=== PATIENT | female | born 1965 | race Caucasian/White ===

== ENCOUNTER 2016-05-09 05:41 | Day surgery (SDC) | payer OTHER ==
[2016-05-09] VITALS (9 sets, daily range): BP systolic 142–184; BP diastolic 72–88
[~2016-05-09] VITALS: Ht 167.6 cm; Wt 121.1 kg
[~2016-05-09 05:41] MED LIST: MEDR10TA PO
[2016-05-09] MEDS ORDERED: LR 1,000 ML IV SCH ×3 (06:00→11:15)
[2016-05-09 06:30] LABS: MEAN CORPUSCULAR HEMOGLOBIN 24.6 pg (27.0-33.0); MEAN CORPUSCULAR HGB CONC 31.5 g/dl (32.0-36.5); MEAN CORPUSCULAR VOLUME 78.3 fl (80.0-96.0); RED CELL DISTRIBUTION WIDTH 13.3 % (11.5-14.5); WHITE BLOOD COUNT 5.5 K/mm3 (4.0-10.0)
[2016-05-09] MEDS ORDERED: METHYLENE BLUE 1% 10 ML VIAL (Q9968) As Ordered ONE (07:18)
[2016-05-09] MEDS ORDERED: BUPIVACAINE HCL 0.25% 30 ML VIAL As Ordered ONE (07:18)
[2016-05-09] MEDS ORDERED: fentaNYL 250 MCG/5 ML INJECTION (J3010) As Ordered ONE (07:19)
[2016-05-09] MEDS ORDERED: ROCURONIUM BROMIDE 50 MG/5 ML VIAL As Ordered ONE ×2 (07:19→08:28)
[2016-05-09] MEDS ORDERED: LIDOCAINE 2% INJ 100 MG/5 ML SDV (FOR ANES.) As Ordered ONE (07:19)
[2016-05-09] MEDS ORDERED: PROPOFOL 200 MG/20 ML VIAL As Ordered ONE (07:19)
[2016-05-09] MEDS ORDERED: MIDAZOLAM INJ 2 MG/2 ML VIAL (J2250) As Ordered ONE (07:20)
[2016-05-09] MEDS ORDERED: ePHEDrine SULFATE 25 MG/5 ML(5MG/ML) SYRINGE As Ordered ONE (08:11)
[2016-05-09] MEDS ORDERED: BUPIVACAINE HCL 0.25% 30 ML VIAL XX ONE (08:46)
[2016-05-09] MEDS ORDERED: ONDANSETRON 4MG/2ML VIAL (J2405) As Ordered ONE (09:04)
[2016-05-09] MEDS ORDERED: METOCLOPRAMIDE INJ 10MG/2ML VIAL (J2765) As Ordered ONE (09:04)
[2016-05-09] MEDS ORDERED: dexameTHASONE 4 MG/ML 1ML VIAL (J1100) As Ordered ONE (09:04)
[2016-05-09] MEDS ORDERED: REMIFENTANIL 1MG 3ML VIAL As Ordered ONE (09:05)
[2016-05-09] MEDS ORDERED: HYDROmorphone HCL 2 MG/ML 1ML VIAL (J1170) As Ordered ONE (09:14)
[2016-05-09] MEDS ORDERED: GLYCOPYRROLATE INJ 0.2 MG/ML 2 ML VIAL As Ordered ONE (09:33)
[2016-05-09] MEDS ORDERED: NEOSTIGMINE 1MG/ML 5 ML SYRINGE (J2710) As Ordered ONE (09:33)
[2016-05-09] MEDS ORDERED: PHENYLephrine HCL 500 MCG/5 ML (100MCG/ML) SYRINGE (J2370) As Ordered ONE (10:17)
[2016-05-09] MEDS ORDERED: PROMETHAZINE INJ 25 MG/ML VIAL (J2550) IV PRN (11:15)
[2016-05-09] MEDS ORDERED: PERCOCET 5MG/325MG TAB PO PRN ×3 (11:15)
[2016-05-09] MEDS ORDERED: zolPIDEM TARTRATE 10MG TAB PO PRN (11:15)
[2016-05-09] MEDS ORDERED: fentaNYL 100 MCG/2 ML INJECTION (J3010) As Ordered ONE (11:25)
[2016-05-09] MEDS: fentaNYL 100 MCG/2 ML INJECTION (J3010) IV PRN ×2 (11:26→11:31)
[2016-05-09] MEDS ORDERED: MORPHINE 4 MG/ML 1ML SYRINGE IV PRN (13:00)
--- NOTE | 2016-05-09 14:14 | RO ---
DATE OF PROCEDURE: 05/09/2016 PREPROCEDURE DIAGNOSES: 1. Abnormal uterine bleeding. 2. Fibroid uterus. POSTPROCEDURE DIAGNOSES: 1. Abnormal uterine bleeding. 2. Fibroid uterus. PROCEDURE PERFORMED: 1. Robotic-assisted laparoscopic hysterectomy. 2. Bilateral salpingo-oophorectomy. 3. Cystoscopy. SURGEON: Zuri Liang MD GENERAL FREIGHT AGENT: Mariza Wells NP ANESTHESIA: General endotracheal anesthesia. INTRAVENOUS FLUIDS: 2 liters of lactated Ringer solution. SPECIMENS: Cervix, uterus, bilateral fallopian tubes and ovaries. PREOPERATIVE ANTIBIOTICS: 2 grams of Ancef. OPERATIVE FINDINGS: Patient with approximately 10 week sized uterus with several fibroids. Right follicular cyst. CYSTOSCOPIC FINDINGS: Good urethral efflux bilaterally. No evidence of trauma to the bladder or foreign body. INDICATION FOR OPERATION: The patient is a 50-year-old with symptomatic fibroid uterus and desires to proceed with definitive treatment options with hysterectomy. She also desires prophylactic bilateral salpingo-oophorectomy. DESCRIPTION OF OPERATION: After informed consent was obtained and written content was reviewed, the patient was then taken to the operating room where general endotracheal anesthesia was obtained. She was then placed in lithotomy position and was prepped and draped in a normal sterile fashion. A time-out in the operating room was then performed identifying the patient, the procedure to be performed, as well as drug allergies. A speculum was then placed in the vagina revealing the cervix. The anterior and posterior aspects of the cervix were stitched with #0 Vicryl. The uterus was then sequentially dilated with Hanks dilators. A large VCare uterine manipulator was then advanced through the cervical os for means to manipulate the uterus. The uterine balloon was insufflated with 10 mL of air. The cervical cap was placed over cervix and the vaginal sleeve was advanced down to the vagina. Instruments were removed from the vagina. A David catheter was placed and set to gravity. Gloves were changed and attention was turned to the patient's abdomen where a Veress needle was placed through the umbilicus. A pneumoperitoneum was then obtained with CO2 gas. The supraumbilical area was then infused with 0.25% Marcaine. An incision was made in this area and a 12 mm trocar and sleeve was advanced through this incision. The laparoscope was then placed revealing intra-abdominal placement. Two lateral ports, left and to the right of the umbilicus were placed. Each of these ports were infused with 0.25% Marcaine. An 8 mm trocar and sleeve was advanced through each one of these incisions under direct visualization. A fourth trocar was placed in the left side of the patient's abdomen. This area was infused with 0.25% Marcaine. An incision was made in this area. Another 8 mm trocar and sleeve was advanced through this incision under direct visualization. Next, the da Rahul was then advanced to the patient's table and it was docked utilizing a camera arm and two operative arms. Utilizing da Rahul equipment, bipolar cautery the utero-ovarian ligaments were then cauterized and ligated with good hemostasis noted bilaterally. The round ligaments on both sides were then cauterized and ligated with good hemostasis noted. The anterior lip of the broad ligament was then dissected along the bladder, creating a bladder flap. The remainder of the broad ligaments and cardinal ligaments were then cauterized and ligated with good hemostasis noted. The uterine arteries were then skeletonized bilaterally and were cauterized and ligated with good hemostasis noted. The anterior and posterior colpotomies were then made and the uterus was removed vaginally. The surgical sites were then inspected and noted to be hemostatic. Next, bilateral salpingo-oophorectomy was then performed. The right adnexa was placed in traction. The infundibulopelvic ligament was then cauterized and ligated with good hemostasis noted. The specimen was then brought out through the vaginal incision in a single fashion. The left adnexa was placed in traction. The left infundibulopelvic ligament was then cauterized and ligated with good hemostasis noted. The specimen was removed and brought out through the vaginal incision. Next, the vaginal cuff was then closed laparoscopically using #2-0 V-Loc system in a running fashion. The surgical sites were inspected and noted to be hemostatic. The abdomen was then irrigated and suctioned. Alejandro was applied over the surgical sites. Next, a cystoscopy was performed. The David catheter was removed. The cystoscope was advanced through the urethra. Cystoscopy was performed revealing normal bladder mucosa, bilateral jets. The bladder was then drained. The gloves were changed, and attention was turned to the patient's abdomen where all skin incisions were closed with #4-0 Monocryl and dressed with Dermabond. The patient was then taken out of lithotomy position, was awakened from general anesthesia and taken to recovery in stable condition. Counts were correct.
== END 2016-05-09 20:30 | disposition home or self-care (01) ==
LOC: M SDC 05:41 → M PED 12:07 → M SDC 20:30
PROVIDERS: ATTEND Obstetrics & Gynecology
DX: N93.9 Abnormal uterine and vaginal bleeding, unspecified (principal); D25.1 Intramural leiomyoma of uterus; R06.83 Snoring; E66.01 Morbid (severe) obesity due to excess calories; D64.9 Anemia, unspecified; Z88.8 Allergy status to other drugs, medicaments and biological substances; Z79.899 Other long term (current) drug therapy

== ENCOUNTER 2017-04-28 21:33 | Emergency (ER) | payer OTHER ==
[2017-04-28] MEDS ORDERED: NORCO, ANEXSIA 5/325MG TABLET (HYDROcodone/ACETAMINOPHEN) PO ×2 (23:15)
[2017-04-29 00:32] LABS: BASO # 0.1 10^3/uL (0.0-0.2); BASO % 0.5 % (0.0-1.0); EOS # 0.2 10^3/uL (0.0-0.50); EOS % 2.2 % (0.0-3.0); HEMATOCRIT 37.2 % (36.0-47.0); HEMOGLOBIN 11.8 g/dl (12.0-16.0); IMMATURE GRANULOCYTE % 0.8 % (0-3.0); LYMPH # 1.4 10^3/uL (1.5-4.5); LYMPH % 14.2 % (24.0-44.0); MEAN CORPUSCULAR HEMOGLOBIN 27.9 pg (27.0-33.0); MEAN CORPUSCULAR HGB CONC 31.7 g/dl (32.0-36.5); MEAN CORPUSCULAR VOLUME 87.9 fl (80.0-96.0); MONO # 0.7 10^3/uL (0.0-0.8); MONO % 7.4 % (0.0-5.0); NEUTROPHILS # 7.3 10^3/uL (1.8-7.7); NEUTROPHILS % 74.9 % (36.0-66.0); PLATELET COUNT, AUTOMATED 349 10^3/uL (150-450); RED BLOOD COUNT 4.23 10^6/uL (4.00-5.40); RED CELL DISTRIBUTION WIDTH 13.2 % (11.5-14.5); WHITE BLOOD COUNT 9.8 10^3/uL (4.0-10.0)
[2017-04-29 00:50] LABS: ANION GAP 8 MEQ/L (8-16); BLOOD UREA NITROGEN 26 MG/DL (7-18); CALCIUM LEVEL 9.4 MG/DL (8.5-10.1); CARBON DIOXIDE LEVEL 31 MEQ/L (21-32); CHLORIDE LEVEL 102 MEQ/L (98-107); CREATININE FOR GFR 1.03 MG/DL (0.55-1.30); GLOMERULAR FILTRATION RATE > 60.0 (>58); GLUCOSE, FASTING 120 MG/DL (70-100); POTASSIUM SERUM 4.1 MEQ/L (3.5-5.1); SODIUM LEVEL 141 MEQ/L (136-145)
[2017-04-29] MEDS: NS 1,000 ML IV ×2 (01:00)
== END 2017-04-29 02:30 | disposition short-term general hospital (02) ==
LOC: M ED 04-29 02:30
DX: D49.511 Neoplasm of unspecified behavior of right kidney (principal); M79.89 Other specified soft tissue disorders; G43.909 Migraine, unspecified, not intractable, without status migrainosus; D64.9 Anemia, unspecified; Z88.8 Allergy status to other drugs, medicaments and biological substances
CPT/HCPCS: 71046

== ENCOUNTER → 2017-07-30 | Outpatient (CLI) | payer OTHER ==
[2017-07-30 15:07] LABS: INR 1.71; PROTHROMBIN TIME 20.6 SECONDS (12.4-14.5)
== END ==
LOC: M LAB 14:39
DX: Z51.81 Encounter for therapeutic drug level monitoring (principal); Z79.01 Long term (current) use of anticoagulants; I82.91 Chronic embolism and thrombosis of unspecified vein
CPT/HCPCS: 85610

== ENCOUNTER → 2017-08-17 | Outpatient (CLI) | payer OTHER ==
[2017-08-17 10:29] LABS: INR 1.02; PROTHROMBIN TIME 13.5 SECONDS (12.4-14.5)
[2017-08-17 10:30] LABS: PARTIAL THROMBOPLASTIN TIME 26.9 SECONDS (26.8-37.9)
== END ==
LOC: M LAB 09:38
DX: C64.1 Malignant neoplasm of right kidney, except renal pelvis (principal)
CPT/HCPCS: 85610

== ENCOUNTER → 2017-08-27 | Outpatient (CLI) | payer OTHER ==
[2017-08-27 13:51] LABS: INR 1.28; PROTHROMBIN TIME 16.3 SECONDS (12.4-14.5)
== END ==
LOC: M LAB 13:13
DX: I82.91 Chronic embolism and thrombosis of unspecified vein (principal); Z79.01 Long term (current) use of anticoagulants
CPT/HCPCS: 85610

== ENCOUNTER → 2017-09-03 | Outpatient (CLI) | payer OTHER ==
[2017-09-03 10:58] LABS: INR 1.75; PROTHROMBIN TIME 20.8 SECONDS (12.1-14.4)
== END ==
LOC: M LAB 10:12
DX: Z51.81 Encounter for therapeutic drug level monitoring (principal); Z79.01 Long term (current) use of anticoagulants
CPT/HCPCS: 85610

== ENCOUNTER → 2017-09-10 | Outpatient (CLI) | payer OTHER ==
[2017-09-10 12:06] LABS: INR 1.78
== END ==
LOC: M LAB 11:26
DX: I82.91 Chronic embolism and thrombosis of unspecified vein (principal); Z79.01 Long term (current) use of anticoagulants
CPT/HCPCS: 85610

== ENCOUNTER → 2017-09-21 | Outpatient (CLI) | payer OTHER ==
[2017-09-21 13:01] LABS: INR 2.16; PROTHROMBIN TIME 24.5 SECONDS (12.1-14.4)
== END ==
LOC: M LAB 12:30
DX: I82.91 Chronic embolism and thrombosis of unspecified vein (principal); Z79.01 Long term (current) use of anticoagulants
CPT/HCPCS: 85610

== ENCOUNTER 2017-09-25 15:40 | Emergency (ER) | payer OTHER ==
[2017-09-25 17:11] LABS: BASO # 0.1 10^3/uL (0.0-0.2); BASO % 0.7 % (0.0-1.0); EOS # 0.2 10^3/uL (0.0-0.50); EOS % 2.7 % (0.0-3.0); HEMATOCRIT 37.5 % (36.0-47.0); HEMOGLOBIN 11.7 g/dl (12.0-15.5); IMMATURE GRANULOCYTE % 0.4 % (0-3.0); LYMPH # 1.5 10^3/uL (1.5-4.5); LYMPH % 19.8 % (24.0-44.0); MEAN CORPUSCULAR HGB CONC 31.2 g/dl (32.0-36.5); MEAN CORPUSCULAR VOLUME 86.4 fl (80.0-96.0); MONO # 0.5 10^3/uL (0.0-0.8); MONO % 6.8 % (0.0-5.0); NEUTROPHILS # 5.3 10^3/uL (1.8-7.7); NEUTROPHILS % 69.6 % (36.0-66.0); PLATELET COUNT, AUTOMATED 272 10^3/uL (150-450); RED BLOOD COUNT 4.34 10^6/uL (4.00-5.40); RED CELL DISTRIBUTION WIDTH 14.6 % (11.5-14.5); WHITE BLOOD COUNT 7.7 10^3/uL (4.0-10.0)
[2017-09-25 17:16] LABS: ALBUMIN 3.9 GM/DL (3.2-5.2); ALBUMIN/GLOBULIN RATIO 1.08 (1.00-1.93); ALKALINE PHOSPHATASE 72 U/L (45-117); ALT/SGPT 46 U/L (12-78); ANION GAP 7 MEQ/L (8-16); AST/SGOT 26 U/L (7-37); BILIRUBIN,TOTAL 0.2 MG/DL (0.2-1.0); BLOOD UREA NITROGEN 24 MG/DL (7-18); CARBON DIOXIDE LEVEL 28 MEQ/L (21-32); CHLORIDE LEVEL 107 MEQ/L (98-107); GLUCOSE, FASTING 89 MG/DL (70-100); POTASSIUM SERUM 4.3 MEQ/L (3.5-5.1); SODIUM LEVEL 142 MEQ/L (136-145); TOTAL PROTEIN 7.5 GM/DL (6.4-8.2)
[2017-09-25 18:01] LABS: INR 2.17; PROTHROMBIN TIME 24.6 SECONDS (12.1-14.4)
== END 2017-09-25 19:38 | disposition home or self-care (01) ==
LOC: M ED 15:40
DX: I82.431 Acute embolism and thrombosis of right popliteal vein (principal); C64.9 Malignant neoplasm of unspecified kidney, except renal pelvis; D64.9 Anemia, unspecified; G43.909 Migraine, unspecified, not intractable, without status migrainosus; Z79.899 Other long term (current) drug therapy; Z79.01 Long term (current) use of anticoagulants; Z90.5 Acquired absence of kidney
CPT/HCPCS: 71046

== ENCOUNTER → 2017-09-28 | Outpatient (CLI) | payer OTHER ==
[2017-09-28 11:28] LABS: INR 2.09; PROTHROMBIN TIME 23.9 SECONDS (12.1-14.4)
== END ==
LOC: M LAB 10:41
DX: I82.91 Chronic embolism and thrombosis of unspecified vein (principal)
CPT/HCPCS: 85610

== ENCOUNTER → 2017-09-30 | Outpatient (CLI) | payer OTHER | LOC: M RAD 12:20 | DX: C64.1 Malignant neoplasm of right kidney, except renal pelvis (principal) | CPT/HCPCS: 71250 ==

== ENCOUNTER 2017-11-27 20:19 | Emergency (ER) | payer OTHER ==
[2017-11-27] MEDS: NORCO 5/325MG TABLET (BULK FOR ED) PO (22:57)
== END 2017-11-27 23:17 | disposition home or self-care (01) ==
LOC: M ED 20:19
DX: S00.03XA Contusion of scalp, initial encounter (principal); S20.211A Contusion of right front wall of thorax, initial encounter; W10.9XXA Fall (on) (from) unspecified stairs and steps, initial encounter; Y92.099 Unspecified place in other non-institutional residence as the place of occurrence of the external cause; Y93.89 Activity, other specified; Y99.9 Unspecified external cause status; Z85.528 Personal history of other malignant neoplasm of kidney; Z86.718 Personal history of other venous thrombosis and embolism; Z79.01 Long term (current) use of anticoagulants; Z79.899 Other long term (current) drug therapy; Z88.6 Allergy status to analgesic agent
CPT/HCPCS: 70450

== ENCOUNTER 2018-03-01 11:45 | Emergency (ER) | payer OTHER ==
[~2018-03-01] VITALS: Ht 170.2 cm; Wt 122.7 kg
[~2018-03-01 11:45] MED LIST changes: +LEVO25TA5 PO; +LEXA1TAB PO; +LOVE0.01 SC; +TORS5TAB2 PO; +WARF-21 PO; +WARF-22 PO
[2018-03-01] MEDS ORDERED: ELIQ5TAB PO (12:03)
[2018-03-01] MEDS ORDERED: ACETAMINOPHEN 325 MG TAB PO ONE (12:45)
[2018-03-01 13:28] VITALS: BP 133/76
--- NOTE | 2018-03-05 11:52 | REP ---
Clinical: Trauma. Fall. Technique: Neutral and frog lateral views of the left hip. Findings: No acute fracture dislocation. Skeletal structures, joint spaces, and surrounding soft tissues are normal. Impression: No acute fracture or dislocation. Electronically Signed by Julio Soliman MD 03/01/2018 12:26 P
--- NOTE | 2018-03-05 11:52 | REP ---
Clinical: Trauma. Technique: AP, lateral, bilateral oblique views of the left ankle. Findings: Oblique nondisplaced fracture of the distal fibular metaphysis with overlying soft tissue swelling. Impression: Oblique nondisplaced fracture of the distal fibular metaphysis. Electronically Signed by Julio Soliman MD 03/01/2018 12:26 P
== END 2018-03-01 13:31 | disposition home or self-care (01) ==
LOC: M ED 11:45
DX: S82.435A Nondisplaced oblique fracture of shaft of left fibula, initial encounter for closed fracture (principal); W19.XXXA Unspecified fall, initial encounter; Y92.410 Unspecified street and highway as the place of occurrence of the external cause; Y93.89 Activity, other specified; Y99.9 Unspecified external cause status; Z85.528 Personal history of other malignant neoplasm of kidney; Z79.899 Other long term (current) drug therapy; Z88.6 Allergy status to analgesic agent

== ENCOUNTER 2019-01-12 12:20 | Emergency (ER) | payer OTHER ==
[~2019-01-12] VITALS: Ht 167.6 cm; Wt 136.6 kg
[~2019-01-12 12:20] MED LIST changes: +ELIQ5TAB PO
[2019-01-12] MEDS ORDERED: VOTRIENT (12:26)
--- NOTE | 2019-01-12 13:02 | REP ---
CT brain: 01/12/2019. Indication: Head trauma. Comparison: 11/27/2018. Technique: Unenhanced axial CT images of the brain were obtained from skull base to vertex. Findings: There is no acute intracranial hemorrhage, acute cortical infarction, mass effect, hydrocephalus or acute calvarial fracture. Impression: No acute intracranial process. Electronically Signed by Lev Coronel DO 01/12/2019 12:53 P
[2019-01-12] MEDS ORDERED: HYDR12CA PO (13:11)
--- NOTE | 2019-01-12 13:16 | REP ---
CT cervical spine: 01/12/2019. Indication: Cervical spine trauma. Comparison: None. Technique: Unenhanced axial CT images of the cervical spine were obtained without IV IV contrast with coronal and sagittal reconstructions provided. Findings: There is mild reversal of the cervical lordosis. There is no acute fracture, subluxation or dislocation. No severe narrowing of the spinal canal is detected. There is no significant hemorrhage detected within the spinal canal. No erosive osseous lesions are detected. Impression: No acute post traumatic osseous injuries of the cervical spine detected. Electronically Signed by Lev Coronel DO 01/12/2019 01:08 P
[2019-01-12 14:19] VITALS: BP 128/91
== END 2019-01-12 14:20 | disposition home or self-care (01) ==
LOC: M ED 12:20
DX: S00.03XA Contusion of scalp, initial encounter (principal); T14.8XXA Other injury of unspecified body region, initial encounter; W01.198A Fall on same level from slipping, tripping and stumbling with subsequent striking against other object, initial encounter; Y92.481 Parking lot as the place of occurrence of the external cause; G57.92 Unspecified mononeuropathy of left lower limb; E03.9 Hypothyroidism, unspecified; F41.9 Anxiety disorder, unspecified; Z86.718 Personal history of other venous thrombosis and embolism; Z86.711 Personal history of pulmonary embolism; Z88.6 Allergy status to analgesic agent; C64.9 Malignant neoplasm of unspecified kidney, except renal pelvis; Z90.5 Acquired absence of kidney; Z79.899 Other long term (current) drug therapy; Z79.01 Long term (current) use of anticoagulants

== ENCOUNTER → 2019-07-04 | Outpatient (CLI) | payer OTHER ==
[~2019-07-04] MED LIST changes: +HYDR12CA PO; +VOTRIENT
[2019-07-04 12:10] LABS: BASO % 0.4 % (0.0-1.0); EOS # 0.1 10^3/uL (0.0-0.5); EOS % 1.9 % (0.0-3.0); HEMATOCRIT 44.8 % (36.0-47.0); HEMOGLOBIN 14.3 g/dl (12.0-15.5); LYMPH # 0.9 10^3/uL (1.5-5.0); LYMPH % 17.3 % (24.0-44.0); MEAN CORPUSCULAR HEMOGLOBIN 31.4 pg (27.0-33.0); MEAN CORPUSCULAR HGB CONC 31.9 g/dl (32.0-36.5); MEAN CORPUSCULAR VOLUME 98.2 fl (80.0-96.0); MONO # 0.3 10^3/uL (0.0-0.8); MONO % 6.1 % (0.0-5.0); NEUTROPHILS # 3.9 10^3/uL (1.5-8.5); NEUTROPHILS % 73.9 % (36.0-66.0); PLATELET COUNT, AUTOMATED 261 10^3/uL (150-450); RED BLOOD COUNT 4.56 10^6/uL (4.00-5.40); WHITE BLOOD COUNT 5.3 10^3/uL (4.0-10.0)
[2019-07-04 12:34] LABS: ALBUMIN 3.8 GM/DL (3.2-5.2); BILIRUBIN,TOTAL 0.3 MG/DL (0.2-1.0); CALCIUM LEVEL 9.8 MG/DL (8.5-10.1); CREATININE FOR GFR 1.08 MG/DL (0.55-1.30); GLOMERULAR FILTRATION RATE 56.9 (>51); TOTAL PROTEIN 7.5 GM/DL (6.4-8.2)
== END ==
LOC: M LAB 11:34
PROVIDERS: ATTEND Physician Assistant Medical
DX: C64.1 Malignant neoplasm of right kidney, except renal pelvis (principal)

== ENCOUNTER → 2019-09-08 | Outpatient (CLI) | payer OTHER ==
--- NOTE | 2019-09-21 15:54 | REP ---
THYROID ULTRASOUND: Real-time sonographic evaluation of thyroid performed. For reasons unknown to me, this study is submitted for interpretation 09/21/2019. Right lobe is mildly larger than left. Right lobe measures 4.9 x 1.9 x 1.7 cm and left lobe 3.8 x 1.8 x 1.4 cm. There are bilateral solid nodules present. The largest nodule is in the upper pole on the right and demonstrates heterogeneous echotexture with hypoechoic center and hypoechoic rim. It measures 1.4 x 1.2 x 1.1 cm. Three smaller nodules are seen in the right lobe, one in the upper pole 5 mm in diameter, another in the mid aspect 4 mm in diameter, and another in the lower pole 6 mm in diameter. There are two solid nodules on the left, in the superior aspect, 8 mm in diameter, and in the lower aspect 4 mm in diameter. IMPRESSION: Bilateral solid nodules of the thyroid with mild enlargement of the right lobe. The largest nodule was in the right upper lobe and measures 1.4 cm in maximum diameter. According to TI-RADS criteria, fine-needle aspiration is not indicated. In addition, no followup is indicated for nodules having this appearance that are less than 1.5 cm in diameter. Electronically Signed by Shahram Michelle MD 09/21/2019 11:55 P
== END ==
LOC: M LRY 08:58
DX: E04.2 Nontoxic multinodular goiter (principal)

== ENCOUNTER → 2019-10-02 | Outpatient (CLI) | payer OTHER ==
[2019-11-16 13:56] LABS: PERCENT SATURATION 26.6 % (13.2-45.0)
== END ==
LOC: M LAB 10:50
PROVIDERS: ATTEND Internal Medicine Hematology & Oncology
DX: R53.83 Other fatigue (principal)

== ENCOUNTER → 2019-10-23 | Outpatient (CLI) | payer MEDICARE, OTHER ==
[2019-12-15 16:32] LABS: PERCENT SATURATION 24.1 % (13.2-45.0)
== END ==
LOC: M LAB 08:50
PROVIDERS: ATTEND Internal Medicine Hematology & Oncology
DX: R53.83 Other fatigue (principal)

== ENCOUNTER → 2020-01-24 | Outpatient (CLI) | payer MEDICARE, OTHER ==
[2020-01-24 11:13] LABS: BASO % 0.4 % (0.0-1.0); EOS # 0.1 10^3/uL (0.0-0.5); EOS % 1.7 % (0.0-3.0); HEMATOCRIT 41.7 % (36.0-47.0); HEMOGLOBIN 12.8 g/dl (12.0-15.5); LYMPH # 0.8 10^3/uL (1.5-5.0); LYMPH % 16.1 % (24.0-44.0); MEAN CORPUSCULAR HEMOGLOBIN 31.3 pg (27.0-33.0); MEAN CORPUSCULAR HGB CONC 30.7 g/dl (32.0-36.5); MONO # 0.3 10^3/uL (0.0-0.8); MONO % 5.7 % (0.0-5.0); NEUTROPHILS # 3.6 10^3/uL (1.5-8.5); NEUTROPHILS % 75.9 % (36.0-66.0); PLATELET COUNT, AUTOMATED 233 10^3/uL (150-450); RED BLOOD COUNT 4.09 10^6/uL (4.00-5.40); WHITE BLOOD COUNT 4.8 10^3/uL (4.0-10.0)
[2020-01-24 12:10] LABS: ALBUMIN 3.9 GM/DL (3.2-5.2); ALT/SGPT 84 U/L (12-78); BILIRUBIN,TOTAL 0.5 MG/DL (0.2-1.0); BLOOD UREA NITROGEN 17 MG/DL (7-18); CALCIUM LEVEL 9.2 MG/DL (8.5-10.1); CARBON DIOXIDE LEVEL 32 MEQ/L (21-32); CHLORIDE LEVEL 101 MEQ/L (98-107); CREATININE FOR GFR 0.89 MG/DL (0.55-1.30); GLOMERULAR FILTRATION RATE > 60.0 (>51); GLUCOSE, FASTING 116 MG/DL (70-100); IRON (FE) 87 UG/DL (50-170); PERCENT SATURATION 22.1 % (13.2-45.0); POTASSIUM SERUM 4.4 MEQ/L (3.5-5.1); SODIUM LEVEL 137 MEQ/L (136-145); TOTAL IRON BINDING CAPACITY 393 UG/DL (250-450); TOTAL PROTEIN 7.8 GM/DL (6.4-8.2)
== END ==
LOC: M LAB 09:35
PROVIDERS: ATTEND Internal Medicine Hematology & Oncology
DX: C64.9 Malignant neoplasm of unspecified kidney, except renal pelvis (principal); E61.1 Iron deficiency

== ENCOUNTER → 2020-07-26 | Outpatient (CLI) | payer MEDICARE, OTHER | LOC: M CARPUL 09:50 | PROVIDERS: ATTEND Internal Medicine Pulmonary Disease | DX: R06.02 Shortness of breath (principal) ==

== ENCOUNTER → 2020-08-08 | Outpatient (CLI) | payer MEDICARE, OTHER ==
[~2020-08-08] MED LIST changes: +HYDR-3490 PO; +VOTR200T2 PO
== END ==
LOC: M LABSMTC 11:38
PROVIDERS: ATTEND Anesthesiology
DX: Z01.818 Encounter for other preprocedural examination (principal); Z11.52 Encounter for screening for COVID-19

== ENCOUNTER → 2020-08-09 | Outpatient (CLI) | payer MEDICARE, OTHER ==
[~2020-08-09] MED LIST changes: +METHACHOLINE KIT (J7674) INH ONE
--- NOTE | 2020-08-09 13:26 | PFTRPT ---
Site: [facility], [address] [place], [address] ID: [id number] Name: ADALBERTO PATEL Visit Date: 08/09/2020 Second ID: [id number] Referring Doctor: Fernando Alston MD Reviewing Doctor: Fernando Alston MD Lead Burner Apprentice: Sukhdev BURNS, SARIAH Age: 54 : 1965 Sex: Female Race: Height: 66.00 Inches Weight: 293.00 Lbs BSA: 2.35 Order IDs: [id number] Requested Test(s): <RESP-PFT.METH CHAL> Diagnosis: R06.02 of albuterol for post bronchodilator. Review Status: Not Reviewed Pre-Bronch Post-Bronch Pred Actual %Pred Actual %Chng SPIROMETRY FVC (L) 3.73 2.84 76 2.67 -6 FEV1 (L) 2.93 2.42 82 2.28 -5 FEV1/FVC (%) 80 85 106 86 FEF 25% (L/sec) 5.36 5.93 110 4.93 -16 FEF 50% (L/sec) 3.84 4.15 108 3.87 -6 FEF 75% (L/sec) 1.37 1.15 83 0.80 -30 FEF 25-75% (L/sec) 2.76 2.94 106 2.45 -16 FEF Max (L/sec) 6.94 5.93 85 4.94 -16 FIVC (L) 2.93 2.58 -12 FIF 50% (L/sec) 4.24 4.90 115 4.23 -13 FIF Max (L/sec) 4.91 4.58 -6 Expiratory Time (sec) 6.73 7.37 9 Back Extrap Vol (L) 0.12 0.11 -2 Time To FEFmax (sec) 0.117 0.157 34
== END ==
LOC: M CARPUL 12:39
PROVIDERS: ATTEND Internal Medicine Pulmonary Disease
DX: R06.02 Shortness of breath (principal)
CPT/HCPCS: 94070; 95070; J7674

== ENCOUNTER 2020-08-13 12:20 | Day surgery (SDC) | payer MEDICARE, OTHER ==
[~2020-08-13] VITALS: Ht 167.6 cm; Wt 129.3 kg
[~2020-08-13 12:20] MED LIST changes: -METHACHOLINE KIT (J7674) INH ONE; +NS 1,000 ML IV ONE
[2020-08-13] MEDS ORDERED: fentaNYL 100 MCG/2 ML INJECTION (J3010) As Ordered ONE (14:18)
[2020-08-13] MEDS ORDERED: LIDOCAINE 2% 100MG/5ML SDV (FOR ANES.) As Ordered ONE (14:18)
[2020-08-13] MEDS ORDERED: propofoL 200 MG/20 ML VIAL As Ordered ONE ×2 (14:18→15:19)
--- NOTE | 2020-08-13 15:28 | ROOR ---
Patient Name: Eve Simon Procedure Date: 08/13/2020 2:49 PM Date of : 1965 Age: 54 Room: [facility] Gender: Female Note Status: Finalized Procedure: Upper GI endoscopy Indications: Iron deficiency anemia, Occult blood in stool Providers: Oni Madrid MD Referring MD: EFFIE COE DO Requesting Provider: Medicines: Monitored Anesthesia Care Complications: No immediate complications. Procedure: Pre-Anesthesia Assessment: - Prior to the procedure, a History and Physical was performed, and patient medications and allergies were reviewed. The patient is competent. The risks and benefits of the procedure and the sedation options and risks were discussed with the patient. All questions were answered and informed consent was obtained. Patient identification and proposed procedure were verified by the physician, the nurse and the anesthesiologist in the procedure room. Mental Status Examination: alert and oriented. Airway Examination: normal oropharyngeal airway and neck mobility. Respiratory Examination: clear to auscultation. CV Examination: normal. Prophylactic Antibiotics: The patient does not require prophylactic antibiotics. Prior Anticoagulants: The patient has taken no previous anticoagulant or antiplatelet agents. ASA Grade Assessment: III - A patient with severe systemic disease. After reviewing the risks and benefits, the patient was deemed in satisfactory condition to undergo the procedure. The anesthesia plan was to use monitored anesthesia care (MAC). Immediately prior to administration of medications, the patient was re-assessed for adequacy to receive sedatives. The heart rate, respiratory rate, oxygen saturations, blood pressure, adequacy of pulmonary ventilation, and response to care were monitored throughout the procedure. The physical status of the patient was re-assessed after the procedure. The Endoscope was introduced through the mouth, and advanced to the second part of duodenum. The upper GI endoscopy was accomplished without difficulty. The patient tolerated the procedure well. Findings: The examined esophagus was normal. Scattered and patchy moderate inflammation characterized by erythema, friability and granularity was found in the gastric antrum. Biopsies were taken with a cold forceps for Helicobacter pylori testing. Verification of patient identification for the specimen was done by the physician and nurse using the patient's name, date and medical record number. Estimated blood loss was minimal. Decreased folds were found in the duodenal bulb, decreased folds were found in the second portion of the duodenum, scalloped mucosa was found in the duodenal bulb and thickened folds were found in the duodenal bulb. Biopsies for histology were taken with a cold forceps for evaluation of celiac disease. Multiple diminutive angioectasias without bleeding were found in the entire duodenum. Impression: - Normal esophagus. - Gastritis. Biopsied. - Duodenal mucosal changes seen, suspicious for celiac disease. Biopsied. - Multiple non-bleeding angioectasias in the duodenum. Recommendation: - Patient has a contact number available for emergencies. The signs and symptoms of potential delayed complications were discussed with the patient. Return to normal activities tomorrow. Written discharge instructions were provided to the patient. - High fiber diet. - Continue present medications. - Use Protonix (pantoprazole) 40 mg PO twice daily - to be taken in morning (1/2 hour before breakfast) and at bedtime ( atleast 3 hours after last meal) for 3 months. - Await pathology results. - Check CBC, serum iron , transferrin and ferritin levels (fasting labs) in 3 months. - Repeat upper endoscopy in 3 months to evaluate the response to therapy. - Return to GI clinic in 3 months. - Return to primary care physician. Procedure Code(s): --- Professional --- 67418, Esophagogastroduodenoscopy, flexible, transoral; with biopsy, single or multiple Diagnosis Code(s): --- Professional --- K29.70, Gastritis, unspecified, without bleeding K31.89, Other diseases of stomach and duodenum K31.819, Angiodysplasia of stomach and duodenum without bleeding D50.9, Iron deficiency anemia, unspecified R19.5, Other fecal abnormalities CPT copyright 2019 [employer]. All rights reserved. The codes documented in this report are preliminary and upon binding end stitcher review may be revised to meet current compliance requirements. Oni Madrid MD Oni Madrid MD 08/13/2020 3:27:41 PM Electronically signed by Oni Madrid MD Number of Addenda: 0 Note Initiated On: 08/13/2020 2:49 PM Estimated Blood Loss: Estimated blood loss was minimal.
--- NOTE | 2020-08-13 15:37 | ROOR ---
Patient Name: Eve Simon Procedure Date: 08/13/2020 2:50 PM Date of : 1965 Age: 54 Room: [facility] Gender: Female Note Status: Finalized Procedure: Colonoscopy Indications: Gastrointestinal occult blood loss, Iron deficiency anemia Providers: Oni Madrid MD Referring MD: EFFIE COE DO Requesting Provider: Medicines: Monitored Anesthesia Care Complications: No immediate complications. Procedure: Pre-Anesthesia Assessment: - Prior to the procedure, a History and Physical was performed, and patient medications and allergies were reviewed. The patient is competent. The risks and benefits of the procedure and the sedation options and risks were discussed with the patient. All questions were answered and informed consent was obtained. Patient identification and proposed procedure were verified by the physician, the nurse and the anesthesiologist in the procedure room. Mental Status Examination: alert and oriented. Airway Examination: normal oropharyngeal airway and neck mobility. Respiratory Examination: clear to auscultation. CV Examination: normal. Prophylactic Antibiotics: The patient does not require prophylactic antibiotics. Prior Anticoagulants: The patient has taken no previous anticoagulant or antiplatelet agents. ASA Grade Assessment: III - A patient with severe systemic disease. After reviewing the risks and benefits, the patient was deemed in satisfactory condition to undergo the procedure. The anesthesia plan was to use monitored anesthesia care (MAC). Immediately prior to administration of medications, the patient was re-assessed for adequacy to receive sedatives. The heart rate, respiratory rate, oxygen saturations, blood pressure, adequacy of pulmonary ventilation, and response to care were monitored throughout the procedure. The physical status of the patient was re-assessed after the procedure. The Colonoscope was introduced through the anus and advanced to the terminal ileum, with identification of the appendiceal orifice and IC valve. The colonoscopy was performed without difficulty. The patient tolerated the procedure well. The quality of the bowel preparation was good. The terminal ileum, ileocecal valve, appendiceal orifice, and rectum were photographed. Scope insertion time was 2 minutes. Scope withdrawal time was 8 minutes. The total duration of the procedure was 12 minutes. Findings: The perianal and digital rectal examinations were normal. The terminal ileum contained multiple small angioectasias without bleeding. A 3 mm polyp was found in the cecum. The polyp was sessile. The polyp was removed with a cold biopsy forceps. Resection and retrieval were complete. Verification of patient identification for the specimen was done by the physician and nurse using the patient's name, date and medical record number. Estimated blood loss was minimal. Non-bleeding external and internal hemorrhoids were found during retroflexion. The hemorrhoids were medium-sized. Impression: - Multiple non-bleeding angioectasias in the ileum. - One 3 mm polyp in the cecum, removed with a cold biopsy forceps. Resected and retrieved. - Non-bleeding external and internal hemorrhoids. Recommendation: - Patient has a contact number available for emergencies. The signs and symptoms of potential delayed complications were discussed with the patient. Return to normal activities tomorrow. Written discharge instructions were provided to the patient. - High fiber diet. - Continue present medications. - Await pathology results. - Repeat colonoscopy in 5-10 years for surveillance based on pathology results. - Follow the recommendations as per the other procedure note. - Return to GI clinic in 3 months. - Return to primary care physician. Procedure Code(s): --- Professional --- 63793, Colonoscopy, flexible; with biopsy, single or multiple Diagnosis Code(s): --- Professional --- K55.20, Angiodysplasia of colon without hemorrhage K63.5, Polyp of colon K64.8, Other hemorrhoids R19.5, Other fecal abnormalities D50.9, Iron deficiency anemia, unspecified CPT copyright 2019 [employer]. All rights reserved. The codes documented in this report are preliminary and upon stereoptician review may be revised to meet current compliance requirements. Oni Madrid MD Oni Madrid MD 08/13/2020 3:36:50 PM Electronically signed by Oni Madrid MD Number of Addenda: 0 Note Initiated On: 08/13/2020 2:50 PM Estimated Blood Loss: Estimated blood loss was minimal.
[2020-08-13 15:51] VITALS: BP 137/78
== END 2020-08-13 15:53 | disposition home or self-care (01) ==
LOC: M OPP 12:20
PROVIDERS: ATTEND Internal Medicine Gastroenterology
DX: K55.20 Angiodysplasia of colon without hemorrhage (principal); K63.5 Polyp of colon; K64.8 Other hemorrhoids; R19.5 Other fecal abnormalities; D50.9 Iron deficiency anemia, unspecified; K29.00 Acute gastritis without bleeding; K31.89 Other diseases of stomach and duodenum; K31.819 Angiodysplasia of stomach and duodenum without bleeding; Z79.899 Other long term (current) drug therapy; Z88.8 Allergy status to other drugs, medicaments and biological substances; Z91.041 Radiographic dye allergy status; Z92.21 Personal history of antineoplastic chemotherapy; Z85.528 Personal history of other malignant neoplasm of kidney
CPT/HCPCS: 43239; 45380; 88305; J3010

== ENCOUNTER → 2020-09-17 | Outpatient (CLI) | payer MEDICARE, OTHER ==
[~2020-09-17] MED LIST changes: -NS 1,000 ML IV ONE
== END ==
LOC: M RAD 08:07
PROVIDERS: ATTEND Internal Medicine Cardiovascular Disease
DX: R07.2 Precordial pain (principal)

== ENCOUNTER → 2020-09-19 | Outpatient (CLI) | payer MEDICARE, OTHER ==
[~2020-09-19] MED LIST changes: +ISOVUE-370 76% 100ML VIAL As Ordered ONE
[2020-09-19 18:00] LABS: ALBUMIN 3.7 GM/DL (3.2-5.2); BLOOD UREA NITROGEN 17 MG/DL (7-18); CALCIUM LEVEL 8.8 MG/DL (8.5-10.1); CARBON DIOXIDE LEVEL 29 MEQ/L (21-32); CHLORIDE LEVEL 106 MEQ/L (98-107); CREATININE FOR GFR 1.01 MG/DL (0.55-1.30); GLOMERULAR FILTRATION RATE > 60.0 (>51); GLUCOSE, FASTING 147 MG/DL (70-100); NT-PRO BNP 104 PG/ML (<125); PHOSPHORUS LEVEL 1.9 MG/DL (2.5-4.9); POTASSIUM SERUM 3.9 MEQ/L (3.5-5.1); SODIUM LEVEL 140 MEQ/L (136-145)
--- NOTE | 2020-09-19 23:01 | REP ---
INDICATION: RENAL CA W/ RECURRENT DVT / LABS 1ST COMPARISON: Noncontrast chest CT dated 11/27/2017 TECHNIQUE: Axial contrast enhanced images from the thoracic inlet to the upper abdomen using pulmonary embolus technique with multiplanar re-formations. 75 ml Isovue 370 intravenous contrast material administered without complication. This CT examination was performed using the following dose reduction techniques: Automated exposure control, adjustment of mA and/or kv according to the patient's size, and use of iterative reconstruction technique. FINDINGS: Satisfactory enhancement of the pulmonary vasculature is achieved and no filling defects are identified to suggest pulmonary embolus. Further evaluation of the mediastinum demonstrates normal thoracic aorta, heart and pericardium. The bilateral lung mejias are well aerated and clear without consolidation pleural effusion or pneumothorax. Tracheobronchial tree is patent. No nodule or mass lesion is identified. No adenopathy noted. Surrounding musculoskeletal structures intact IMPRESSION: No evidence for pulmonary embolus. No acute mediastinal or pleural parenchymal process. <Electronically signed by Julio Soliman > 09/19/20 [id number]
== END ==
LOC: M RAD 16:34 → M LAB 16:34
PROVIDERS: ATTEND Internal Medicine Cardiovascular Disease
DX: I50.810 Right heart failure, unspecified (principal)
CPT/HCPCS: 36415; 71275; 80069; 83880; Q9967

== ENCOUNTER → 2020-10-04 | Outpatient (CLI) | payer MEDICARE, OTHER ==
[~2020-10-04] MED LIST changes: -ISOVUE-370 76% 100ML VIAL As Ordered ONE
[2020-10-04 13:30] LABS: EOS # 0.1 10^3/uL (0.0-0.5); EOS % 2.5 % (0.0-3.0); HEMATOCRIT 38.7 % (36.0-47.0); LYMPH # 0.9 10^3/uL (1.5-5.0); MEAN CORPUSCULAR HEMOGLOBIN 31.3 pg (27.0-33.0); MONO # 0.2 10^3/uL (0.0-0.8); MONO % 5.8 % (2.0-8.0); NEUTROPHILS # 2.7 10^3/uL (1.5-8.5); NEUTROPHILS % 68.4 % (36.0-66.0); PLATELET COUNT, AUTOMATED 206 10^3/uL (150-450); RED BLOOD COUNT 3.83 10^6/uL (4.00-5.40)
== END ==
LOC: M LAB 12:42
PROVIDERS: ATTEND Family Medicine
DX: D50.9 Iron deficiency anemia, unspecified (principal)

== ENCOUNTER → 2020-10-05 | Outpatient (CLI) | payer MEDICARE ==
--- NOTE | 2020-10-08 17:56 | SLEEPCENT ---
DATE: 10/05/2020 ORDERED BY: Fernando Alston MD Nocturnal polysomnography was performed for evaluation of sleep physiology in this patient with a history of excessive somnolence. Eight hours and 9 minutes of data were reviewed. There were 377.5 minutes of sleep identified. Sleep latency was normal at 12 minutes. REM sleep was delayed at 436 minutes. Sleep architecture showed poor progression. There was one REM cycle late in the study. Overall sleep efficiency was 78.7%. The electrocardiogram showed a sinus rhythm with an average heart rate of 75 beats per minute. EEG showed normal waveforms for wake and sleep. There were 323 respiratory events identified of 10 seconds in duration or greater for an apnea-hypopnea index of 51.3. The events were obstructive, not exclusive to sleep stage nor body posture. Arousals from respiratory events occurred 5.1 times per hour. There was significant limb activity but arousals from limb events occurred only 2.7 times per hour. IMPRESSION: Severe obstructive sleep apnea syndrome (G47.33). Apnea-hypopnea index 51.3. RECOMMENDATION: The patient should be encouraged to return to [facility] for [facility]. In the interim, alcohol and sedative avoidance should be practiced and caution exercised during the operation of motor vehicles. cc: Barrett Dinero MD
== END ==
LOC: M SLEEP 20:00
PROVIDERS: ATTEND Internal Medicine Pulmonary Disease
DX: G47.33 Obstructive sleep apnea (adult) (pediatric) (principal)

== ENCOUNTER → 2020-10-21 | Outpatient (CLI) | payer MEDICARE, OTHER ==
[2020-10-21 10:40] LABS: HEMATOCRIT 40.3 % (36.0-47.0); HEMOGLOBIN 12.5 g/dl (12.0-15.5); MEAN CORPUSCULAR HEMOGLOBIN 31.6 pg (27.0-33.0); PLATELET COUNT, AUTOMATED 204 10^3/uL (150-450); RED BLOOD COUNT 3.95 10^6/uL (4.00-5.40)
[2020-10-21 11:06] LABS: ALBUMIN 3.8 GM/DL (3.2-5.2); BLOOD UREA NITROGEN 19 MG/DL (7-18); CALCIUM LEVEL 9.1 MG/DL (8.5-10.1); CARBON DIOXIDE LEVEL 29 MEQ/L (21-32); CHLORIDE LEVEL 105 MEQ/L (98-107); CREATININE FOR GFR 0.92 MG/DL (0.55-1.30); GLOMERULAR FILTRATION RATE > 60.0 (>51); GLUCOSE, FASTING 110 MG/DL (70-100); PHOSPHORUS LEVEL 3.6 MG/DL (2.5-4.9); POTASSIUM SERUM 4.7 MEQ/L (3.5-5.1); SODIUM LEVEL 140 MEQ/L (136-145)
== END ==
LOC: M LAB 10:21
PROVIDERS: ATTEND Internal Medicine Cardiovascular Disease
DX: I50.32 Chronic diastolic (congestive) heart failure (principal)

== ENCOUNTER → 2020-12-25 | Outpatient (CLI) | payer MEDICARE, OTHER ==
[2020-12-25 15:47] LABS: BASO % 0.6 % (0.0-1.0); EOS # 0.1 10^3/uL (0.0-0.5); EOS % 2.4 % (0.0-3.0); HEMATOCRIT 39.7 % (36.0-47.0); HEMOGLOBIN 12.8 g/dl (12.0-15.5); LYMPH # 1.2 10^3/uL (1.5-5.0); LYMPH % 23.8 % (24.0-44.0); MEAN CORPUSCULAR HEMOGLOBIN 33.7 pg (27.0-33.0); MEAN CORPUSCULAR HGB CONC 32.2 g/dl (32.0-36.5); MEAN CORPUSCULAR VOLUME 104.5 fl (80.0-96.0); MONO # 0.3 10^3/uL (0.0-0.8); MONO % 5.9 % (2.0-8.0); NEUTROPHILS # 3.4 10^3/uL (1.5-8.5); NEUTROPHILS % 67.1 % (36.0-66.0); PLATELET COUNT, AUTOMATED 214 10^3/uL (150-450); WHITE BLOOD COUNT 5.1 10^3/uL (4.0-10.0)
[2020-12-25 16:20] LABS: ALBUMIN 3.9 GM/DL (3.2-5.2); ALT/SGPT 58 U/L (12-78); BLOOD UREA NITROGEN 19 MG/DL (7-18); CALCIUM LEVEL 9.4 MG/DL (8.5-10.1); CARBON DIOXIDE LEVEL 34 MEQ/L (21-32); CHLORIDE LEVEL 104 MEQ/L (98-107); CREATININE FOR GFR 0.98 MG/DL (0.55-1.30); GLOMERULAR FILTRATION RATE > 60.0 (>51); GLUCOSE, FASTING 97 MG/DL (70-100); IRON (FE) 117 UG/DL (50-170); PERCENT SATURATION 32.3 % (13.2-45.0); POTASSIUM SERUM 4.1 MEQ/L (3.5-5.1); SODIUM LEVEL 141 MEQ/L (136-145); TOTAL IRON BINDING CAPACITY 362 UG/DL (250-450); TOTAL PROTEIN 7.8 GM/DL (6.4-8.2)
== END ==
LOC: M LAB 15:20
PROVIDERS: ATTEND Physician Assistant Medical
DX: D50.8 Other iron deficiency anemias (principal)

== ENCOUNTER → 2021-03-15 | Outpatient (CLI) | payer MEDICARE, OTHER ==
[2021-03-15 15:45] LABS: ALBUMIN 3.7 GM/DL (3.2-5.2); BLOOD UREA NITROGEN 18 MG/DL (7-18); CALCIUM LEVEL 9.3 MG/DL (8.5-10.1); CARBON DIOXIDE LEVEL 29 MEQ/L (21-32); CHLORIDE LEVEL 107 MEQ/L (98-107); CREATININE FOR GFR 0.79 MG/DL (0.55-1.30); GLOMERULAR FILTRATION RATE > 60.0 (>51); GLUCOSE, FASTING 97 MG/DL (70-100); NT-PRO BNP 23 PG/ML (<125); PHOSPHORUS LEVEL 3.6 MG/DL (2.5-4.9); POTASSIUM SERUM 4.4 MEQ/L (3.5-5.1); SODIUM LEVEL 143 MEQ/L (136-145)
== END ==
LOC: M LAB 14:15
PROVIDERS: ATTEND Internal Medicine Cardiovascular Disease
DX: I50.32 Chronic diastolic (congestive) heart failure (principal)

== ENCOUNTER → 2021-03-15 | Outpatient (CLI) | payer MEDICARE, OTHER ==
[2021-03-15 15:41] LABS: BASO % 0.5 % (0.0-1.0); EOS # 0.1 10^3/uL (0.0-0.5); EOS % 2.7 % (0.0-3.0); HEMATOCRIT 39.7 % (36.0-47.0); HEMOGLOBIN 12.6 g/dl (12.0-15.5); LYMPH % 24.4 % (24.0-44.0); MEAN CORPUSCULAR HEMOGLOBIN 34.1 pg (27.0-33.0); MEAN CORPUSCULAR HGB CONC 31.7 g/dl (32.0-36.5); MEAN CORPUSCULAR VOLUME 107.6 fl (80.0-96.0); MONO # 0.3 10^3/uL (0.0-0.8); MONO % 7.2 % (2.0-8.0); NEUTROPHILS # 2.6 10^3/uL (1.5-8.5); NEUTROPHILS % 65.2 % (36.0-66.0); PLATELET COUNT, AUTOMATED 206 10^3/uL (150-450); RED BLOOD COUNT 3.69 10^6/uL (4.00-5.40)
[2021-03-15 15:46] LABS: BLOOD UREA NITROGEN 19 MG/DL (7-18); CALCIUM LEVEL 9.3 MG/DL (8.5-10.1); CARBON DIOXIDE LEVEL 31 MEQ/L (21-32); CHLORIDE LEVEL 107 MEQ/L (98-107); CREATININE FOR GFR 0.81 MG/DL (0.55-1.30); GLOMERULAR FILTRATION RATE > 60.0 (>51); GLUCOSE, FASTING 96 MG/DL (70-100); POTASSIUM SERUM 4.6 MEQ/L (3.5-5.1); SODIUM LEVEL 142 MEQ/L (136-145)
[2021-03-15 15:47] LABS: ALBUMIN 3.7 GM/DL (3.2-5.2); ALT/SGPT 52 U/L (12-78); BILIRUBIN,TOTAL 0.7 MG/DL (0.2-1.0); IRON (FE) 90 UG/DL (50-170); PERCENT SATURATION 26.7 % (13.2-45.0); TOTAL IRON BINDING CAPACITY 337 UG/DL (250-450); TOTAL PROTEIN 7.1 GM/DL (6.4-8.2)
== END ==
LOC: M LAB 14:19
PROVIDERS: ATTEND Internal Medicine Hematology & Oncology
DX: C64.9 Malignant neoplasm of unspecified kidney, except renal pelvis (principal); E61.1 Iron deficiency; I50.32 Chronic diastolic (congestive) heart failure

== ENCOUNTER → 2021-04-04 | Outpatient (CLI) | payer MEDICARE, OTHER | LOC: M RAD 07:41 | PROVIDERS: ATTEND Internal Medicine Gastroenterology | DX: K80.20 Calculus of gallbladder without cholecystitis without obstruction (principal) ==

== ENCOUNTER → 2021-06-06 | Outpatient (CLI) | payer MEDICARE, OTHER ==
[2021-06-06 16:34] LABS: EOS # 0.1 10^3/uL (0.0-0.5); EOS % 3.4 % (0.0-3.0); HEMATOCRIT 39.6 % (36.0-47.0); HEMOGLOBIN 12.8 g/dl (12.0-15.5); LYMPH # 1.1 10^3/uL (1.5-5.0); LYMPH % 29.2 % (24.0-44.0); MEAN CORPUSCULAR HEMOGLOBIN 34.6 pg (27.0-33.0); MEAN CORPUSCULAR HGB CONC 32.3 g/dl (32.0-36.5); MONO # 0.2 10^3/uL (0.0-0.8); MONO % 5.7 % (2.0-8.0); NEUTROPHILS # 2.3 10^3/uL (1.5-8.5); NEUTROPHILS % 60.4 % (36.0-66.0); PLATELET COUNT, AUTOMATED 188 10^3/uL (150-450); WHITE BLOOD COUNT 3.9 10^3/uL (4.0-10.0)
[2021-06-06 17:02] LABS: ALBUMIN 3.6 GM/DL (3.2-5.2); ALT/SGPT 45 U/L (12-78); BILIRUBIN,TOTAL 0.9 MG/DL (0.2-1.0); BLOOD UREA NITROGEN 14 MG/DL (7-18); CALCIUM LEVEL 9.4 MG/DL (8.5-10.1); CARBON DIOXIDE LEVEL 32 MEQ/L (21-32); CHLORIDE LEVEL 109 MEQ/L (98-107); CREATININE FOR GFR 0.74 MG/DL (0.55-1.30); GLOMERULAR FILTRATION RATE > 60.0 (>51); GLUCOSE, FASTING 88 MG/DL (70-100); POTASSIUM SERUM 3.9 MEQ/L (3.5-5.1); SODIUM LEVEL 142 MEQ/L (136-145); TOTAL PROTEIN 7.7 GM/DL (6.4-8.2)
== END ==
LOC: M LAB 15:24
PROVIDERS: ATTEND Internal Medicine Hematology & Oncology
DX: C64.9 Malignant neoplasm of unspecified kidney, except renal pelvis (principal)

== ENCOUNTER → 2021-08-31 | Outpatient (CLI) | payer MEDICARE, OTHER ==
[2021-08-31 13:57] LABS: BASO % 0.6 % (0.0-1.0); EOS # 0.1 10^3/uL (0.0-0.5); EOS % 2.6 % (0.0-3.0); HEMATOCRIT 35.7 % (36.0-47.0); HEMOGLOBIN 11.1 g/dl (12.0-15.5); LYMPH % 28.4 % (24.0-44.0); MEAN CORPUSCULAR HEMOGLOBIN 34.3 pg (27.0-33.0); MEAN CORPUSCULAR HGB CONC 31.1 g/dl (32.0-36.5); MEAN CORPUSCULAR VOLUME 110.2 fl (80.0-96.0); MONO # 0.2 10^3/uL (0.0-0.8); MONO % 6.6 % (2.0-8.0); NEUTROPHILS # 2.2 10^3/uL (1.5-8.5); NEUTROPHILS % 61.5 % (36.0-66.0); PLATELET COUNT, AUTOMATED 179 10^3/uL (150-450); RED BLOOD COUNT 3.24 10^6/uL (4.00-5.40); WHITE BLOOD COUNT 3.5 10^3/uL (4.0-10.0)
[2021-08-31 14:32] LABS: ALBUMIN 3.5 GM/DL (3.2-5.2); ALT/SGPT 45 U/L (12-78); BILIRUBIN,TOTAL 0.6 MG/DL (0.2-1.0); BLOOD UREA NITROGEN 16 MG/DL (7-18); CALCIUM LEVEL 9.2 MG/DL (8.5-10.1); CARBON DIOXIDE LEVEL 28 MEQ/L (21-32); CHLORIDE LEVEL 111 MEQ/L (98-107); GLOMERULAR FILTRATION RATE > 60.0 (>51); GLUCOSE, FASTING 91 MG/DL (70-100); POTASSIUM SERUM 4.6 MEQ/L (3.5-5.1); SODIUM LEVEL 143 MEQ/L (136-145)
== END ==
LOC: M LAB 13:33
PROVIDERS: ATTEND Internal Medicine Hematology & Oncology
DX: C64.9 Malignant neoplasm of unspecified kidney, except renal pelvis (principal)

== ENCOUNTER → 2021-09-22 | Outpatient (CLI) | payer MEDICARE, OTHER ==
[2021-09-22 09:33] LABS: BASO % 0.3 % (0.0-1.0); EOS # 0.1 10^3/uL (0.0-0.5); EOS % 2.4 % (0.0-3.0); HEMATOCRIT 35.6 % (36.0-47.0); LYMPH # 0.7 10^3/uL (1.5-5.0); LYMPH % 18.3 % (24.0-44.0); MEAN CORPUSCULAR HGB CONC 30.9 g/dl (32.0-36.5); MEAN CORPUSCULAR VOLUME 109.9 fl (80.0-96.0); MONO # 0.3 10^3/uL (0.0-0.8); MONO % 7.4 % (2.0-8.0); NEUTROPHILS # 2.7 10^3/uL (1.5-8.5); NEUTROPHILS % 71.3 % (36.0-66.0); PLATELET COUNT, AUTOMATED 168 10^3/uL (150-450); RED BLOOD COUNT 3.24 10^6/uL (4.00-5.40); WHITE BLOOD COUNT 3.8 10^3/uL (4.0-10.0)
[2021-09-22 10:04] LABS: ALBUMIN 3.4 GM/DL (3.2-5.2); ALT/SGPT 48 U/L (12-78); BILIRUBIN,TOTAL 0.7 MG/DL (0.2-1.0); BLOOD UREA NITROGEN 17 MG/DL (7-18); CALCIUM LEVEL 8.7 MG/DL (8.5-10.1); CARBON DIOXIDE LEVEL 28 MEQ/L (21-32); CHLORIDE LEVEL 109 MEQ/L (98-107); CREATININE FOR GFR 0.95 MG/DL (0.55-1.30); GLOMERULAR FILTRATION RATE > 60.0 (>51); GLUCOSE, FASTING 113 MG/DL (70-100); NT-PRO BNP 32 PG/ML (<125); POTASSIUM SERUM 4.4 MEQ/L (3.5-5.1); SODIUM LEVEL 143 MEQ/L (136-145)
== END ==
LOC: M LAB 08:41
PROVIDERS: ATTEND Internal Medicine Cardiovascular Disease
DX: I50.32 Chronic diastolic (congestive) heart failure (principal); I35.1 Nonrheumatic aortic (valve) insufficiency; C64.9 Malignant neoplasm of unspecified kidney, except renal pelvis

== ENCOUNTER → 2021-09-22 | Outpatient (CLI) | payer MEDICARE, OTHER ==
[2021-09-22 09:34] LABS: BASO % 0.5 % (0.0-1.0); EOS # 0.1 10^3/uL (0.0-0.5); EOS % 2.2 % (0.0-3.0); HEMATOCRIT 34.7 % (36.0-47.0); HEMOGLOBIN 10.9 g/dl (12.0-15.5); LYMPH # 0.6 10^3/uL (1.5-5.0); LYMPH % 15.7 % (24.0-44.0); MEAN CORPUSCULAR HEMOGLOBIN 34.8 pg (27.0-33.0); MEAN CORPUSCULAR HGB CONC 31.4 g/dl (32.0-36.5); MEAN CORPUSCULAR VOLUME 110.9 fl (80.0-96.0); MONO # 0.3 10^3/uL (0.0-0.8); MONO % 7.3 % (2.0-8.0); NEUTROPHILS # 2.7 10^3/uL (1.5-8.5); PLATELET COUNT, AUTOMATED 163 10^3/uL (150-450); RED BLOOD COUNT 3.13 10^6/uL (4.00-5.40); WHITE BLOOD COUNT 3.7 10^3/uL (4.0-10.0)
[2021-09-22 10:02] LABS: ALBUMIN 3.5 GM/DL (3.2-5.2); ALT/SGPT 47 U/L (12-78); BILIRUBIN,TOTAL 0.7 MG/DL (0.2-1.0); BLOOD UREA NITROGEN 17 MG/DL (7-18); CALCIUM LEVEL 8.8 MG/DL (8.5-10.1); CARBON DIOXIDE LEVEL 27 MEQ/L (21-32); CHLORIDE LEVEL 109 MEQ/L (98-107); CREATININE FOR GFR 0.97 MG/DL (0.55-1.30); GLOMERULAR FILTRATION RATE > 60.0 (>51); GLUCOSE, FASTING 109 MG/DL (70-100); POTASSIUM SERUM 4.3 MEQ/L (3.5-5.1); SODIUM LEVEL 143 MEQ/L (136-145)
== END ==
LOC: M LAB 08:43
PROVIDERS: ATTEND Internal Medicine Hematology & Oncology
DX: C64.9 Malignant neoplasm of unspecified kidney, except renal pelvis (principal)

== ENCOUNTER → 2021-10-05 | Outpatient (CLI) | payer MEDICARE, OTHER ==
[2021-10-05 15:56] LABS: BASO % 0.9 % (0.0-1.0); EOS # 0.1 10^3/uL (0.0-0.5); EOS % 4.1 % (0.0-3.0); HEMATOCRIT 36.3 % (36.0-47.0); HEMOGLOBIN 11.5 g/dl (12.0-15.5); LYMPH # 0.7 10^3/uL (1.5-5.0); LYMPH % 23.1 % (24.0-44.0); MEAN CORPUSCULAR HEMOGLOBIN 34.2 pg (27.0-33.0); MEAN CORPUSCULAR HGB CONC 31.7 g/dl (32.0-36.5); MONO # 0.3 10^3/uL (0.0-0.8); MONO % 8.5 % (2.0-8.0); NEUTROPHILS % 63.1 % (36.0-66.0); PLATELET COUNT, AUTOMATED 193 10^3/uL (150-450); RED BLOOD COUNT 3.36 10^6/uL (4.00-5.40); WHITE BLOOD COUNT 3.2 10^3/uL (4.0-10.0)
[2021-10-05 16:14] LABS: ALBUMIN 3.7 GM/DL (3.2-5.2); ALT/SGPT 47 U/L (12-78); BILIRUBIN,TOTAL 0.9 MG/DL (0.2-1.0); BLOOD UREA NITROGEN 16 MG/DL (7-18); CALCIUM LEVEL 8.7 MG/DL (8.5-10.1); CARBON DIOXIDE LEVEL 25 MEQ/L (21-32); CHLORIDE LEVEL 110 MEQ/L (98-107); CREATININE FOR GFR 0.71 MG/DL (0.55-1.30); GLOMERULAR FILTRATION RATE > 60.0 (>51); GLUCOSE, FASTING 96 MG/DL (70-100); POTASSIUM SERUM 4.4 MEQ/L (3.5-5.1); SODIUM LEVEL 141 MEQ/L (136-145); TOTAL PROTEIN 7.3 GM/DL (6.4-8.2)
== END ==
LOC: M LAB 15:10
PROVIDERS: ATTEND Physician Assistant Medical
DX: C64.9 Malignant neoplasm of unspecified kidney, except renal pelvis (principal)

== ENCOUNTER → 2021-10-05 | Outpatient (CLI) | payer MEDICARE, OTHER ==
[2021-10-05 15:53] LABS: BASO % 0.9 % (0.0-1.0); EOS # 0.1 10^3/uL (0.0-0.5); EOS % 3.9 % (0.0-3.0); HEMATOCRIT 36.4 % (36.0-47.0); HEMOGLOBIN 11.5 g/dl (12.0-15.5); LYMPH # 0.8 10^3/uL (1.5-5.0); LYMPH % 23.5 % (24.0-44.0); MEAN CORPUSCULAR HEMOGLOBIN 34.2 pg (27.0-33.0); MEAN CORPUSCULAR HGB CONC 31.6 g/dl (32.0-36.5); MEAN CORPUSCULAR VOLUME 108.3 fl (80.0-96.0); MONO # 0.3 10^3/uL (0.0-0.8); MONO % 8.7 % (2.0-8.0); NEUTROPHILS # 2.1 10^3/uL (1.5-8.5); NEUTROPHILS % 62.7 % (36.0-66.0); PLATELET COUNT, AUTOMATED 191 10^3/uL (150-450); RED BLOOD COUNT 3.36 10^6/uL (4.00-5.40); WHITE BLOOD COUNT 3.3 10^3/uL (4.0-10.0)
[2021-10-05 16:21] LABS: PERCENT SATURATION 26.5 % (13.2-45.0); THYROID STIMULATING HORMONE 2.76 uIU/ML (0.358-3.740)
[2021-10-07 09:53] LABS: FOLATE 8.9 NG/ML (>5.4)
== END ==
LOC: M LAB 15:05
PROVIDERS: ATTEND Internal Medicine Hematology & Oncology
DX: D53.9 Nutritional anemia, unspecified (principal); C64.9 Malignant neoplasm of unspecified kidney, except renal pelvis

== ENCOUNTER → 2021-11-14 | Outpatient (CLI) | payer MEDICARE, OTHER ==
[2021-11-14 14:14] LABS: HEMOGLOBIN 10.7 g/dl (12.0-15.5); MEAN CORPUSCULAR HEMOGLOBIN 32.7 pg (27.0-33.0); MEAN CORPUSCULAR HGB CONC 30.6 g/dl (32.0-36.5); PLATELET COUNT, AUTOMATED 256 10^3/uL (150-450); RED BLOOD COUNT 3.27 10^6/uL (4.00-5.40); WHITE BLOOD COUNT 4.4 10^3/uL (4.0-10.0)
[2021-11-14 14:56] LABS: BLOOD UREA NITROGEN 14 MG/DL (7-18); CALCIUM LEVEL 8.6 MG/DL (8.5-10.1); CARBON DIOXIDE LEVEL 31 MEQ/L (21-32); CHLORIDE LEVEL 103 MEQ/L (98-107); CREATININE FOR GFR 0.76 MG/DL (0.55-1.30); GLOMERULAR FILTRATION RATE > 60.0 (>51); GLUCOSE, FASTING 98 MG/DL (70-100); NT-PRO BNP 22 PG/ML (<125); POTASSIUM SERUM 4.2 MEQ/L (3.5-5.1); SODIUM LEVEL 137 MEQ/L (136-145)
== END ==
LOC: M LAB 13:05
PROVIDERS: ATTEND Internal Medicine Cardiovascular Disease
DX: I50.32 Chronic diastolic (congestive) heart failure (principal)

== ENCOUNTER → 2021-12-05 | Outpatient (CLI) | payer MEDICARE, OTHER ==
[~2021-12-05] MED LIST changes: +ALBUTEROL 90 MCG/ACT 8GM HFA INHALER INH PRN; +ALBUTEROL SULFATE 2.5 MG/0.5 ML INH NEB SOLN INH PRN; +BEBTELOVIMAB 175MG 2ML VIAL (EUA) IV ONE; +EPINEPHrine INJ 1 MG/ML 1ML AMP IM PRN; +NS 1,000 ML IV SCH; +diphenhydrAMINE 50MG/ML VIAL (J1200) IV PRN; +methylPREDNISolone 125MG 2ML VIAL IV PRN
[2021-12-05 12:59] VITALS: BP 125/78
== END ==
LOC: M OPCLI4PR 12:19
PROVIDERS: ATTEND Family Medicine
DX: U07.1 COVID-19 (principal); Z88.6 Allergy status to analgesic agent

== ENCOUNTER → 2021-12-28 | Outpatient (CLI) | payer MEDICARE, OTHER ==
[~2021-12-28] MED LIST changes: -ALBUTEROL 90 MCG/ACT 8GM HFA INHALER INH PRN; -ALBUTEROL SULFATE 2.5 MG/0.5 ML INH NEB SOLN INH PRN; -BEBTELOVIMAB 175MG 2ML VIAL (EUA) IV ONE; -EPINEPHrine INJ 1 MG/ML 1ML AMP IM PRN; -NS 1,000 ML IV SCH; -diphenhydrAMINE 50MG/ML VIAL (J1200) IV PRN; -methylPREDNISolone 125MG 2ML VIAL IV PRN
[2021-12-28 11:21] LABS: BASO % 0.9 % (0.0-1.0); EOS # 0.1 10^3/uL (0.0-0.5); EOS % 2.6 % (0.0-3.0); HEMATOCRIT 38.1 % (36.0-47.0); HEMOGLOBIN 11.7 g/dl (12.0-15.5); LYMPH # 0.5 10^3/uL (1.5-5.0); LYMPH % 15.4 % (24.0-44.0); MEAN CORPUSCULAR HEMOGLOBIN 32.8 pg (27.0-33.0); MEAN CORPUSCULAR HGB CONC 30.7 g/dl (32.0-36.5); MEAN CORPUSCULAR VOLUME 106.7 fl (80.0-96.0); MONO # 0.5 10^3/uL (0.0-0.8); MONO % 13.7 % (2.0-8.0); NEUTROPHILS # 2.4 10^3/uL (1.5-8.5); NEUTROPHILS % 67.1 % (36.0-66.0); PLATELET COUNT, AUTOMATED 178 10^3/uL (150-450); RED BLOOD COUNT 3.57 10^6/uL (4.00-5.40); WHITE BLOOD COUNT 3.5 10^3/uL (4.0-10.0)
[2021-12-28 11:59] LABS: PERCENT SATURATION 31.4 % (13.2-45.0); THYROID STIMULATING HORMONE 5.79 uIU/ML (0.358-3.740)
== END ==
LOC: M LAB 10:30
PROVIDERS: ATTEND Internal Medicine Hematology & Oncology
DX: D53.9 Nutritional anemia, unspecified (principal)

== ENCOUNTER 2022-01-15 13:21 | Inpatient (IN) | payer MEDICARE, MEDICAID ==
[~2022-01-15] VITALS: Ht 167.6 cm; Wt 157.3 kg
[2022-01-15] MEDS ORDERED: NS 1,000 ML IV ONE (13:40)
[2022-01-15] MEDS ORDERED: ONDANSETRON 4MG 2ML VIAL IV ONE (13:40)
[2022-01-15 14:40] LABS: BASO % 0.6 % (0.0-1.0); EOS # 0.1 10^3/uL (0.0-0.5); EOS % 1.5 % (0.0-3.0); HEMATOCRIT 27.5 % (36.0-47.0); HEMOGLOBIN 8.9 g/dl (12.0-15.5); LYMPH # 0.6 10^3/uL (1.5-5.0); LYMPH % 10.6 % (24.0-44.0); MEAN CORPUSCULAR HEMOGLOBIN 34.8 pg (27.0-33.0); MEAN CORPUSCULAR HGB CONC 32.4 g/dl (32.0-36.5); MEAN CORPUSCULAR VOLUME 107.4 fl (80.0-96.0); MONO # 0.8 10^3/uL (0.0-0.8); MONO % 15.2 % (2.0-8.0); NEUTROPHILS # 3.9 10^3/uL (1.5-8.5); NEUTROPHILS % 71.4 % (36.0-66.0); PLATELET COUNT, AUTOMATED 217 10^3/uL (150-450); RED BLOOD COUNT 2.56 10^6/uL (4.00-5.40); WHITE BLOOD COUNT 5.4 10^3/uL (4.0-10.0)
[2022-01-15 14:54] LABS: INR 1.19; PROTHROMBIN TIME 15.3 SECONDS (12.5-14.5)
[2022-01-15 14:55] LABS: PARTIAL THROMBOPLASTIN TIME 33.8 SECONDS (24.8-34.2)
[2022-01-15 15:05] LABS: RSV AMPLIFICATION NEGATIVE (NEGATIVE)
[2022-01-15 15:07] LABS: ALBUMIN 2.5 GM/DL (3.2-5.2); BILIRUBIN,TOTAL 4.9 MG/DL (0.2-1.0); CALCIUM LEVEL 8.7 MG/DL (8.5-10.1); CREATININE FOR GFR 1.97 MG/DL (0.55-1.30); GLOMERULAR FILTRATION RATE 28.1 (>51); POTASSIUM SERUM 5.5 MEQ/L (3.5-5.1); TOTAL PROTEIN 6.7 GM/DL (6.4-8.2)
[2022-01-15] MEDS ORDERED: PANTOPRAZOLE 40MG VIAL IV ONE (17:20)
[2022-01-15] MEDS ORDERED: cefTRIAXone SOD 1 GM in D5W MINI-BAG PLUS 50 ML IV ONE (17:20)
[2022-01-15] MEDS: NS 1,000 ML IV SCH (18:35)
[2022-01-15] MEDS ORDERED: TORS10TA3 PO (19:20)
[2022-01-15] MEDS ORDERED: LEXA1TAB2 PO (19:20)
[2022-01-15] MEDS ORDERED: LEVO75TA4 PO (19:20)
[2022-01-15] MEDS ORDERED: SPIR50TA4 PO (19:21)
[2022-01-15] MEDS ORDERED: HOME MED LIST COMPLETE! XX SCH (19:25)
[2022-01-15 21:39] LABS: CALCIUM LEVEL 8.4 MG/DL (8.5-10.1); CREATININE FOR GFR 1.8 MG/DL (0.55-1.30); GLOMERULAR FILTRATION RATE 31.2 (>51); POTASSIUM SERUM 5.3 MEQ/L (3.5-5.1)
[2022-01-16] MEDS: NS 1,000 ML IV SCH (06:01)
[2022-01-16] MEDS: LEVOTHYROXINE 75MCG TABLET (0.075MG) PO SCH (06:01)
[2022-01-16 06:50] LABS: HEMATOCRIT 31.6 % (36.0-47.0); HEMOGLOBIN 9.9 g/dl (12.0-15.5); MEAN CORPUSCULAR HEMOGLOBIN 33.6 pg (27.0-33.0); MEAN CORPUSCULAR HGB CONC 31.3 g/dl (32.0-36.5); MEAN CORPUSCULAR VOLUME 107.1 fl (80.0-96.0); PLATELET COUNT, AUTOMATED 224 10^3/uL (150-450); RED BLOOD COUNT 2.95 10^6/uL (4.00-5.40); WHITE BLOOD COUNT 4.8 10^3/uL (4.0-10.0)
[2022-01-16 07:20] LABS: ALBUMIN 2.6 GM/DL (3.2-5.2); BILIRUBIN,TOTAL 5.4 MG/DL (0.2-1.0); CREATININE FOR GFR 1.86 MG/DL (0.55-1.30); GLOMERULAR FILTRATION RATE 30.1 (>51); MAGNESIUM LEVEL 3.2 MG/DL (1.8-2.4); POTASSIUM SERUM 5.5 MEQ/L (3.5-5.1); TOTAL PROTEIN 7.2 GM/DL (6.4-8.2)
[2022-01-16] MEDS ORDERED: PANTOPRAZOLE 40MG VIAL IV SCH (09:00)
[2022-01-16] MEDS: cefTRIAXone SOD 1 GM in D5W MINI-BAG PLUS 50 ML IV SCH (09:21)
[2022-01-16] MEDS ORDERED: FUROSEMIDE 40MG/4ML VIAL IV SCH (11:00)
[2022-01-16] MEDS: MIDODRINE 5 MG TAB PO SCH ×2 (12:48→16:23)
[2022-01-16] MEDS ORDERED: DEXTROSE 50% 50ML SYRINGE IV STA (12:59)
[2022-01-16] MEDS ORDERED: HumuLIN R (REGULAR) INSULIN (NovoLIN R) **100U/ML** PER UNIT IV STA (12:59)
[2022-01-16] MEDS ORDERED: propofoL 200 MG/20 ML VIAL As Ordered ONE (14:38)
[2022-01-16] MEDS ORDERED: LIDOCAINE 2% 100MG/5ML SDV (FOR ANES.) As Ordered ONE (14:38)
[2022-01-16] MEDS ORDERED: fentaNYL 100 MCG/2 ML INJECTION As Ordered ONE (14:41)
[2022-01-16 15:34] VITALS: BP 102/51
[2022-01-16 19:02] LABS: CALCIUM LEVEL 8.9 MG/DL (8.5-10.1); CREATININE FOR GFR 1.88 MG/DL (0.55-1.30); GLOMERULAR FILTRATION RATE 29.7 (>51); POTASSIUM SERUM 5.4 MEQ/L (3.5-5.1)
[2022-01-16] MEDS: ACETAMINOPHEN TAB 650MG DOSE (2X325MG) PO PRN (19:09)
[2022-01-16 20:00] VITALS: BP 98/60
[2022-01-16] MEDS: LIDOCAINE 5% (LIDODERM) PATCH TD SCH (22:33)
[2022-01-17] VITALS (14 sets, daily range): BP systolic 85–113; BP diastolic 44–70
[2022-01-17] MEDS: LEVOTHYROXINE 75MCG TABLET (0.075MG) PO SCH (06:17)
[2022-01-17 06:21] LABS: BASO # 0.1 10^3/uL (0.0-0.2); BASO % 0.9 % (0.0-1.0); EOS # 0.2 10^3/uL (0.0-0.5); EOS % 2.8 % (0.0-3.0); HEMATOCRIT 24.7 % (36.0-47.0); LYMPH # 0.8 10^3/uL (1.5-5.0); MEAN CORPUSCULAR HEMOGLOBIN 34.2 pg (27.0-33.0); MEAN CORPUSCULAR HGB CONC 31.6 g/dl (32.0-36.5); MEAN CORPUSCULAR VOLUME 108.3 fl (80.0-96.0); MONO # 0.9 10^3/uL (0.0-0.8); MONO % 15.7 % (2.0-8.0); NEUTROPHILS # 3.9 10^3/uL (1.5-8.5); NEUTROPHILS % 66.7 % (36.0-66.0); PLATELET COUNT, AUTOMATED 263 10^3/uL (150-450); RED BLOOD COUNT 2.28 10^6/uL (4.00-5.40); WHITE BLOOD COUNT 5.8 10^3/uL (4.0-10.0)
[2022-01-17 06:28] LABS: HEMOGLOBIN 7.8 g/dl (12.0-15.5)
[2022-01-17 06:55] LABS: ALBUMIN 2.3 GM/DL (3.2-5.2); BILIRUBIN,TOTAL 5.4 MG/DL (0.2-1.0); CALCIUM LEVEL 8.6 MG/DL (8.5-10.1); CREATININE FOR GFR 2.01 MG/DL (0.55-1.30); GLOMERULAR FILTRATION RATE 27.5 (>51); POTASSIUM SERUM 5.5 MEQ/L (3.5-5.1); TOTAL PROTEIN 6.2 GM/DL (6.4-8.2)
[2022-01-17] MEDS: PANTOPRAZOLE 40MG TAB (PROTONIX) PO SCH ×2 (08:14→20:02)
[2022-01-17] MEDS: MIDODRINE 5 MG TAB PO SCH ×3 (08:14→16:07)
[2022-01-17] MEDS: ACETAMINOPHEN TAB 650MG DOSE (2X325MG) PO PRN ×2 (08:17→20:03)
[2022-01-17] MEDS ORDERED: FUROSEMIDE 80 MG TAB PO SCH (09:00)
[2022-01-17] MEDS ORDERED: LIDOCAINE 1% MDV 20ML VIAL As Ordered ONE (09:38)
[2022-01-17] MEDS: cefTRIAXone SOD 1 GM in D5W MINI-BAG PLUS 50 ML IV SCH (11:26)
[2022-01-17] MEDS ORDERED: SODIUM CHLORIDE 0.9% INJ 10 ML SYR IV PRN (15:45)
[2022-01-17 16:34] LABS: HEMATOCRIT 28.4 % (36.0-47.0)
[2022-01-17] MEDS: FUROSEMIDE injection 250 MG in D5W 225 ML IV SCH (17:23)
[2022-01-17] MEDS: OCTREOTIDE ACETATE 100MCG/ML VIAL **IV ADMINISTRATION ONLY IV SCH (17:24)
[2022-01-17] MEDS: SODIUM CHLORIDE 0.9% INJ 10 ML SYR IV SCH (17:25)
[2022-01-17] MEDS ORDERED: FUROSEMIDE injection 250 MG in D5W 225 ML IV SCH (18:05)
[2022-01-17] MEDS: LIDOCAINE 5% (LIDODERM) PATCH TD SCH (20:04)
[2022-01-17 21:26] LABS: HEMATOCRIT 28.5 % (36.0-47.0)
[2022-01-17] MEDS: ONDANSETRON 4MG 2ML VIAL IV PRN (23:50)
[2022-01-18] VITALS: BP 104/50
[2022-01-18] MEDS: OCTREOTIDE ACETATE 100MCG/ML VIAL **IV ADMINISTRATION ONLY IV SCH (02:14)
[2022-01-18 04:00] VITALS: BP 100/50
[2022-01-18] MEDS: LEVOTHYROXINE 75MCG TABLET (0.075MG) PO SCH (06:01)
[2022-01-18 07:22] LABS: BASO # 0.1 10^3/uL (0.0-0.2); EOS # 0.1 10^3/uL (0.0-0.5); EOS % 2.7 % (0.0-3.0); HEMATOCRIT 28.4 % (36.0-47.0); HEMOGLOBIN 8.8 g/dl (12.0-15.5); LYMPH # 0.7 10^3/uL (1.5-5.0); LYMPH % 12.7 % (24.0-44.0); MEAN CORPUSCULAR VOLUME 106.4 fl (80.0-96.0); MONO # 0.9 10^3/uL (0.0-0.8); MONO % 16.3 % (2.0-8.0); NEUTROPHILS # 3.5 10^3/uL (1.5-8.5); NEUTROPHILS % 66.1 % (36.0-66.0); PLATELET COUNT, AUTOMATED 214 10^3/uL (150-450); RED BLOOD COUNT 2.67 10^6/uL (4.00-5.40); WHITE BLOOD COUNT 5.2 10^3/uL (4.0-10.0)
[2022-01-18 07:51] LABS: ALBUMIN 2.1 GM/DL (3.2-5.2); BILIRUBIN,TOTAL 6.8 MG/DL (0.2-1.0); CALCIUM LEVEL 8.6 MG/DL (8.5-10.1); CREATININE FOR GFR 2.17 MG/DL (0.55-1.30); GLOMERULAR FILTRATION RATE 25.2 (>51)
[2022-01-18 08:00] VITALS: BP 98/56
[2022-01-18] MEDS: MIDODRINE 5 MG TAB PO SCH ×3 (08:39→16:18)
[2022-01-18] MEDS: cefTRIAXone SOD 1 GM in D5W MINI-BAG PLUS 50 ML IV SCH (08:40)
[2022-01-18] MEDS: PANTOPRAZOLE 40MG VIAL IV SCH ×2 (09:31→20:40)
[2022-01-18] MEDS: OCTREOTIDE ACETATE 100MCG/ML VIAL **SC ADMINISTRATION ONLY SC SCH ×2 (10:53→18:15)
[2022-01-18 12:00] VITALS: BP 102/54
[2022-01-18] MEDS: ONDANSETRON 4MG 2ML VIAL IV PRN (15:08)
[2022-01-18 16:00] VITALS: BP 115/53
[2022-01-18] MEDS ORDERED: METOCLOPRAMIDE INJ 10MG/2ML VIAL IV ONE (18:00)
[2022-01-18] MEDS: FUROSEMIDE injection 250 MG in D5W 225 ML IV SCH (18:00)
[2022-01-18] MEDS: SODIUM CHLORIDE 0.9% INJ 10 ML SYR IV SCH (18:09)
[2022-01-18 20:00] VITALS: BP 101/50
[2022-01-18] MEDS: LIDOCAINE 5% (LIDODERM) PATCH TD SCH (20:40)
[2022-01-18] MEDS: ACETAMINOPHEN TAB 650MG DOSE (2X325MG) PO PRN (20:40)
[2022-01-19] VITALS: BP 101/51
[2022-01-19] MEDS: OCTREOTIDE ACETATE 100MCG/ML VIAL **SC ADMINISTRATION ONLY SC SCH ×3 (01:46→17:14)
[2022-01-19 04:00] VITALS: BP 96/58
[2022-01-19] MEDS: LEVOTHYROXINE 75MCG TABLET (0.075MG) PO SCH (05:17)
[2022-01-19 06:59] LABS: BASO # 0.1 10^3/uL (0.0-0.2); BASO % 1.1 % (0.0-1.0); EOS # 0.2 10^3/uL (0.0-0.5); EOS % 3.3 % (0.0-3.0); HEMATOCRIT 30.2 % (36.0-47.0); HEMOGLOBIN 9.4 g/dl (12.0-15.5); LYMPH # 0.7 10^3/uL (1.5-5.0); LYMPH % 12.5 % (24.0-44.0); MEAN CORPUSCULAR HEMOGLOBIN 33.5 pg (27.0-33.0); MEAN CORPUSCULAR HGB CONC 31.1 g/dl (32.0-36.5); MEAN CORPUSCULAR VOLUME 107.5 fl (80.0-96.0); MONO # 0.9 10^3/uL (0.0-0.8); MONO % 15.4 % (2.0-8.0); NEUTROPHILS # 3.7 10^3/uL (1.5-8.5); NEUTROPHILS % 66.6 % (36.0-66.0); PLATELET COUNT, AUTOMATED 233 10^3/uL (150-450); RED BLOOD COUNT 2.81 10^6/uL (4.00-5.40); WHITE BLOOD COUNT 5.5 10^3/uL (4.0-10.0)
[2022-01-19 07:44] LABS: ALBUMIN 2.2 GM/DL (3.2-5.2); BILIRUBIN,TOTAL 6.7 MG/DL (0.2-1.0); CALCIUM LEVEL 8.6 MG/DL (8.5-10.1); CREATININE FOR GFR 2.43 MG/DL (0.55-1.30); GLOMERULAR FILTRATION RATE 22.1 (>51); MAGNESIUM LEVEL 2.9 MG/DL (1.8-2.4); POTASSIUM SERUM 4.7 MEQ/L (3.5-5.1); TOTAL PROTEIN 6.1 GM/DL (6.4-8.2)
[2022-01-19 08:00] VITALS: BP 118/74
[2022-01-19] MEDS: MIDODRINE 5 MG TAB PO SCH ×3 (09:06→16:00)
[2022-01-19] MEDS: PANTOPRAZOLE 40MG VIAL IV SCH ×2 (09:06→20:48)
[2022-01-19] MEDS: cefTRIAXone SOD 1 GM in D5W MINI-BAG PLUS 50 ML IV SCH (09:07)
[2022-01-19] MEDS: ACETAMINOPHEN TAB 650MG DOSE (2X325MG) PO PRN ×2 (09:27→20:48)
[2022-01-19 11:46] VITALS: BP 115/55
[2022-01-19] MEDS ORDERED: FUROSEMIDE injection 250 MG in D5W 225 ML IV SCH (12:15)
[2022-01-19] MEDS: FUROSEMIDE injection 250 MG in D5W 225 ML IV SCH (12:36)
[2022-01-19 15:57] VITALS: BP 108/51
[2022-01-19] MEDS: ONDANSETRON 4MG 2ML VIAL IV PRN ×2 (17:14→23:36)
[2022-01-19] MEDS: SODIUM CHLORIDE 0.9% INJ 10 ML SYR IV SCH (17:26)
[2022-01-19 20:00] VITALS: BP 108/52
[2022-01-19] MEDS: SENOKOT S TAB PO SCH (20:46)
[2022-01-19] MEDS: LIDOCAINE 5% (LIDODERM) PATCH TD SCH (20:48)
[2022-01-20] VITALS: BP 105/55
[2022-01-20] MEDS: FUROSEMIDE injection 250 MG in D5W 225 ML IV SCH ×3 (00:10→12:30)
[2022-01-20] MEDS: OCTREOTIDE ACETATE 100MCG/ML VIAL **SC ADMINISTRATION ONLY SC SCH ×3 (02:10→17:21)
[2022-01-20 04:00] VITALS: BP 115/59
[2022-01-20] MEDS: LEVOTHYROXINE 75MCG TABLET (0.075MG) PO SCH (06:16)
[2022-01-20 06:43] LABS: BASO # 0.1 10^3/uL (0.0-0.2); EOS # 0.3 10^3/uL (0.0-0.5); EOS % 4.2 % (0.0-3.0); HEMATOCRIT 28.9 % (36.0-47.0); LYMPH # 0.6 10^3/uL (1.5-5.0); LYMPH % 9.8 % (24.0-44.0); MEAN CORPUSCULAR HEMOGLOBIN 33.2 pg (27.0-33.0); MEAN CORPUSCULAR HGB CONC 31.1 g/dl (32.0-36.5); MEAN CORPUSCULAR VOLUME 106.6 fl (80.0-96.0); MONO % 15.3 % (2.0-8.0); NEUTROPHILS # 4.3 10^3/uL (1.5-8.5); NEUTROPHILS % 68.6 % (36.0-66.0); PLATELET COUNT, AUTOMATED 225 10^3/uL (150-450); RED BLOOD COUNT 2.71 10^6/uL (4.00-5.40); WHITE BLOOD COUNT 6.2 10^3/uL (4.0-10.0)
[2022-01-20] MEDS: ACETAMINOPHEN TAB 650MG DOSE (2X325MG) PO PRN ×2 (06:46→17:43)
[2022-01-20 07:32] LABS: ALBUMIN 2.2 GM/DL (3.2-5.2); BILIRUBIN,TOTAL 7.8 MG/DL (0.2-1.0); CALCIUM LEVEL 8.7 MG/DL (8.5-10.1); CREATININE FOR GFR 2.5 MG/DL (0.55-1.30); GLOMERULAR FILTRATION RATE 21.4 (>51); MAGNESIUM LEVEL 2.9 MG/DL (1.8-2.4); POTASSIUM SERUM 4.7 MEQ/L (3.5-5.1); TOTAL PROTEIN 6.3 GM/DL (6.4-8.2)
[2022-01-20] MEDS: SENOKOT S TAB PO SCH ×2 (08:00→21:45)
[2022-01-20] MEDS: MIDODRINE 5 MG TAB PO SCH ×3 (08:00→16:13)
[2022-01-20] MEDS: PANTOPRAZOLE 40MG VIAL IV SCH ×2 (08:00→20:48)
[2022-01-20] MEDS: cefTRIAXone SOD 1 GM in D5W MINI-BAG PLUS 50 ML IV SCH (08:01)
[2022-01-20] MEDS ORDERED: LIDOCAINE 1% MDV 20ML VIAL As Ordered ONE (08:35)
[2022-01-20] MEDS: rifAXIMin 550 MG TAB (XIFAXAN) PO SCH ×2 (09:00→21:45)
[2022-01-20] MEDS: ONDANSETRON 4MG 2ML VIAL IV PRN ×3 (10:11→20:48)
[2022-01-20] MEDS: LACTULOSE 20GM/30ML SYRUP UDC PO SCH ×2 (10:11→18:06)
[2022-01-20] MEDS ORDERED: LACTULOSE 20GM/30ML SYRUP UDC PO ONE (11:00)
[2022-01-20 12:00] VITALS: BP 96/50
[2022-01-20 16:00] VITALS: BP 88/58
[2022-01-20] MEDS: SODIUM CHLORIDE 0.9% INJ 10 ML SYR IV SCH (17:21)
[2022-01-20 20:00] VITALS: BP 89/49
[2022-01-20] MEDS: LIDOCAINE 5% (LIDODERM) PATCH TD SCH (21:45)
[2022-01-21] VITALS: BP 100/53
[2022-01-21] MEDS: ONDANSETRON 4MG 2ML VIAL IV PRN ×3 (00:36→16:24)
[2022-01-21] MEDS: LACTULOSE 20GM/30ML SYRUP UDC PO SCH ×2 (00:56→05:25)
[2022-01-21] MEDS: ACETAMINOPHEN TAB 650MG DOSE (2X325MG) PO PRN (00:57)
[2022-01-21 04:00] VITALS: BP 96/46
[2022-01-21] MEDS: OCTREOTIDE ACETATE 100MCG/ML VIAL **SC ADMINISTRATION ONLY SC SCH ×2 (04:15→11:27)
[2022-01-21] MEDS: LEVOTHYROXINE 75MCG TABLET (0.075MG) PO SCH (05:27)
[2022-01-21 07:58] LABS: BASO # 0.1 10^3/uL (0.0-0.2); BASO % 1.1 % (0.0-1.0); EOS # 0.2 10^3/uL (0.0-0.5); EOS % 2.9 % (0.0-3.0); HEMATOCRIT 28.7 % (36.0-47.0); HEMOGLOBIN 9.2 g/dl (12.0-15.5); LYMPH # 0.6 10^3/uL (1.5-5.0); LYMPH % 9.8 % (24.0-44.0); MEAN CORPUSCULAR HEMOGLOBIN 33.7 pg (27.0-33.0); MEAN CORPUSCULAR HGB CONC 32.1 g/dl (32.0-36.5); MEAN CORPUSCULAR VOLUME 105.1 fl (80.0-96.0); MONO # 1.1 10^3/uL (0.0-0.8); MONO % 16.4 % (2.0-8.0); NEUTROPHILS # 4.5 10^3/uL (1.5-8.5); NEUTROPHILS % 68.7 % (36.0-66.0); PLATELET COUNT, AUTOMATED 224 10^3/uL (150-450); RED BLOOD COUNT 2.73 10^6/uL (4.00-5.40); WHITE BLOOD COUNT 6.5 10^3/uL (4.0-10.0)
[2022-01-21 08:00] VITALS: BP 110/60
[2022-01-21] MEDS: MIDODRINE 5 MG TAB PO SCH ×3 (08:00→12:00)
[2022-01-21 08:20] LABS: ALBUMIN 2.2 GM/DL (3.2-5.2); BILIRUBIN,TOTAL 7.8 MG/DL (0.2-1.0); CREATININE FOR GFR 2.69 MG/DL (0.55-1.30); GLOMERULAR FILTRATION RATE 19.6 (>51); POTASSIUM SERUM 4.5 MEQ/L (3.5-5.1); TOTAL PROTEIN 6.3 GM/DL (6.4-8.2)
[2022-01-21] MEDS: rifAXIMin 550 MG TAB (XIFAXAN) PO SCH ×2 (08:41→08:57)
[2022-01-21] MEDS: cefTRIAXone SOD 1 GM in D5W MINI-BAG PLUS 50 ML IV SCH (08:42)
[2022-01-21] MEDS: SENOKOT S TAB PO SCH ×2 (08:42→08:56)
[2022-01-21] MEDS ORDERED: LACTULOSE 20GM/30ML SYRUP UDC PR SCH (10:05)
[2022-01-21 10:42] VITALS: BP 88/50
[2022-01-21] MEDS: PANTOPRAZOLE 40MG VIAL IV SCH (11:26)
[2022-01-21 12:00] VITALS: BP 95/54
[2022-01-21] MEDS ORDERED: ACETAMINOPHEN 650MG SUPP PR PRN (14:35)
[2022-01-21] MEDS ORDERED: SCOPOLAMINE 1MG TRANSDERMAL PATCH TOP PRN (14:35)
[2022-01-21] MEDS ORDERED: LORazepam 2 MG/ML VIAL IV PRN (14:35)
[2022-01-21] MEDS: MORPHINE 2 MG/ML 1ML VIAL IV PRN ×2 (16:26→18:56)
[2022-01-22] MEDS: MORPHINE 2 MG/ML 1ML VIAL IV PRN ×4 (00:40→18:50)
[2022-01-22] MEDS ORDERED: SALIVA SUBSTITUTE(MOUTHKOTE) BTL MT PRN (12:40)
[2022-01-22] MEDS: ONDANSETRON 4MG 2ML VIAL IV PRN (14:48)
[2022-01-23] MEDS: MORPHINE 2 MG/ML 1ML VIAL IV PRN ×3 (05:48→13:06)
[2022-01-23] MEDS: diphenhydrAMINE 25MG CAP PO PRN (10:46)
[2022-01-23] MEDS: MORPHINE 10MG/0.5ML ORAL CONCENTRATE SOLUTION U/D SL PRN (21:27)
[2022-01-24] MEDS: MORPHINE 10MG/0.5ML ORAL CONCENTRATE SOLUTION U/D SL PRN ×2 (00:36→14:17)
[2022-01-24] MEDS ORDERED: MORPHINE 10MG/0.5ML ORAL CONCENTRATE SOLUTION U/D SL ONE (02:05)
[2022-01-24] MEDS ORDERED: HYOS125TA PO (06:52)
[2022-01-24] MEDS ORDERED: ATIV1TAB10 PO (06:52)
[2022-01-24] MEDS ORDERED: MORP1SOL5 PO (06:52)
[2022-01-24] MEDS: diphenhydrAMINE 25MG CAP PO PRN (18:06)
[2022-01-25] MEDS: MORPHINE 10MG/0.5ML ORAL CONCENTRATE SOLUTION U/D SL PRN ×3 (07:09→19:44)
[2022-01-26] MEDS: MORPHINE 10MG/0.5ML ORAL CONCENTRATE SOLUTION U/D SL PRN ×3 (04:35→13:36)
[2022-01-26] MEDS: LORazepam 1 MG TAB PO PRN (11:57)
[2022-01-27] MEDS: MORPHINE 10MG/0.5ML ORAL CONCENTRATE SOLUTION U/D SL PRN ×7 (08:43→21:44)
[2022-01-27] MEDS: ATROPINE SULFATE 1% OPHTH SOLN 2ML BTL SL PRN ×3 (16:53→23:09)
[2022-01-27] MEDS: LORazepam 1 MG TAB PO PRN ×3 (16:53→23:09)
[2022-01-28] MEDS: MORPHINE 10MG/0.5ML ORAL CONCENTRATE SOLUTION U/D SL PRN ×4 (02:09→14:34)
[2022-01-28] MEDS: ATROPINE SULFATE 1% OPHTH SOLN 2ML BTL SL PRN ×2 (06:06→10:45)
== END 2022-01-28 15:34 | disposition expired | DRG 377 ==
LOC: M ED 14:32 → M ED INP 18:35 → ENRESERV 01-16 14:08 → M PCU 01-16 15:23 → M MSPAV 01-21 21:25
PROVIDERS: ADMIT Family Medicine; ATTEND Internal Medicine
PROC: 30233N1 Transfusion of Nonautologous Red Blood Cells into Peripheral Vein, Percutaneous Approach (ICD-10-PCS; 2022-01-15)
PROC: 0W3P8ZZ Control Bleeding in Gastrointestinal Tract, Via Natural or Artificial Opening Endoscopic (ICD-10-PCS; principal; 2022-01-16 12:50)
PROC: 05HC33Z Insertion of Infusion Device into Left Basilic Vein, Percutaneous Approach (ICD-10-PCS; 2022-01-17)
DX: K31.811 Angiodysplasia of stomach and duodenum with bleeding (principal); K76.7 Hepatorenal syndrome; N17.9 Acute kidney failure, unspecified; R18.8 Other ascites; I82.413 Acute embolism and thrombosis of femoral vein, bilateral; E87.0 Hyperosmolality and hypernatremia; I13.0 Hypertensive heart and chronic kidney disease with heart failure and stage 1 through stage 4 chronic kidney disease, or unspecified chronic kidney disease; D62 Acute posthemorrhagic anemia; E72.20 Disorder of urea cycle metabolism, unspecified; E87.20 Acidosis, unspecified; Z51.5 Encounter for palliative care; Z66 Do not resuscitate; I85.00 Esophageal varices without bleeding; E87.5 Hyperkalemia; I95.9 Hypotension, unspecified; F32.A Depression, unspecified; K72.90 Hepatic failure, unspecified without coma; K75.81 Nonalcoholic steatohepatitis (NASH); E87.70 Fluid overload, unspecified; I50.9 Heart failure, unspecified; K74.60 Unspecified cirrhosis of liver; N18.9 Chronic kidney disease, unspecified; Z85.528 Personal history of other malignant neoplasm of kidney; Z79.890 Hormone replacement therapy; Z79.899 Other long term (current) drug therapy; Z88.6 Allergy status to analgesic agent; Z91.041 Radiographic dye allergy status; Z90.5 Acquired absence of kidney